=== PATIENT | female | born 1940 | race Hispanic/Latino ===

== ENCOUNTER 2017-10-29 17:20 | Inpatient (IN) | payer OTHER ==
--- OUTSIDE RECORDS SUMMARY | 2017-10-29 17:24 | XMS REPORT | Clinical Summary ---
:1940 Author Organization [facility] Address [address] [place] [address] Care Team Providers Name Role Phone Asked, No Pcp Primary Care Provider Unavailable Allergies Active Allergy Reactions Severity Noted Date Comments Hydrocodone Shortness Of Breath High 07/05/2017 Penicillins Other (See Comments) Medium 07/05/2017 Unknown Reaction Tramadol Shortness Of Breath High 07/05/2017 Current Medications Prescription Sig. Disp. Refills Start Date End Date Status furosemide Take 40 mg by 05/24/2017 Active (LASIX) 40 mg mouth daily. tablet gabapentin Take 300 mg by 06/14/2017 Active (NEURONTIN) 300 mouth 3 (three) mg capsule times a day. VICTOZA 3-LE 0.6 Inject 1.2 mg 05/04/2017 Active mg/0.1 mL (18 under the skin mg/3 mL) pen daily with injector breakfast. losartan (COZAAR) Take 50 mg by 05/24/2017 Active 50 MG tablet mouth daily. metFORMIN Take 500 mg by 05/24/2017 Active (GLUCOPHAGE) 500 mouth 2 (two) mg tablet times a day with meals. oxybutynin Take 5 mg by 05/24/2017 Active (DITROPAN) 5 MG mouth daily. tablet pravastatin Take 20 mg by 04/11/2017 Active (PRAVACHOL) 20 MG mouth daily. tablet raloxifene Take 60 mg by 04/11/2017 Active (EVISTA) 60 mg mouth daily. tablet fluticasone 06/05/2017 Discontinued (FLONASE) 50 7 mcg/actuation nasal spray BREO ELLIPTA Inhale 1 07/01/2017 Discontinued 200-25 mcg/dose inhalations once 7 blister with daily. device powder for inhalation levoFLOXacin 07/05/2017 Discontinued (LEVAQUIN) 250 MG 7 tablet metoprolol 07/05/2017 Discontinued succinate XL 7 (TOPROL-XL) 25 mg 24 hr tablet omeprazole Take 20 mg by 05/24/2017 Discontinued (PriLOSEC) 20 MG mouth daily. 7 capsule potassium Take 10 mEq by 06/17/2017 Discontinued chloride mouth daily. 7 (K-DUR,KLOR-CON) 10 MEQ CR tablet predniSONE Take 10 mg by 06/14/2017 Discontinued (DELTASONE) 10 mg mouth daily. [address] 1 capsule 06/15/2017 Discontinued HANDIHALER 18 mcg into inhaler and 7 per inhalation inhale once capsule daily. valsartan 05/24/2017 Discontinued (DIOVAN) 80 MG [address] 1 puff (1 30 capsule 0 07/09/2017 HANDIHALER 18 mcg capsule total) 8 per inhalation into inhaler and capsule inhale once daily for 30 days. arformoterol Take 2 mL (15 mcg 120 mL 0 07/09/2017 (BROVANA) 15 total) by 8 mcg/2 mL solution nebulization 2 for nebulization (two) times a day for 30 days. ipratropium-albut Take 3 mL by 360 mL 0 07/09/2017 levi (DUO-NEB) nebulization 8 0.5-2.5 mg/mL every 4 (four) nebulizer hours as needed for wheezing or shortness of breath for up to 30 days. predniSONE Take 2 tablets 6 tablet 0 07/10/2017 (DELTASONE) 20 mg (40 mg total) by 7 tablet mouth daily for 3 days. omeprazole Take 2 capsules 60 capsule 0 07/09/2017 (PriLOSEC) 20 MG (40 mg total) by 8 capsule mouth daily for 30 days. Active Problems Problem Noted Date COPD exacerbation 07/07/2017 Other chest pain 07/05/2017 Encounters Date Type Specialty Care Team Description 07/20/2017 Lab Lab Colomer, Ac, Dyspnea, unspecified type (Primary Dx) ; Acute respiratory insufficiency 07/05/2017 - Hospital Encounter Cardiology Pavel Coleman Other chest pain (Primary Dx); 07/09/2017 MD Yamil Shortness of breath Valarie Bacon MD Lock, Zeinab Herrera MD after 10/28/2016 Social History Tobacco Use Types Packs/Day Years Used Date Never Smoker Smokeless Tobacco: Never Used Alcohol Use Drinks/Week oz/Week Comments No Sex Assigned at Date Recorded Not on file Last Filed Vital Signs Vital Sign Reading Time Taken Blood Pressure 97/65 07/09/2017 1:30 PM HEADWAITER/HEADWAITRESS Pulse 68 07/09/2017 1:30 PM HEADWAITER/HEADWAITRESS Temperature 36.6 C (97.9 F) 07/09/2017 1:30 PM HEADWAITER/HEADWAITRESS Respiratory Rate 20 07/09/2017 1:30 PM HEADWAITER/HEADWAITRESS Oxygen Saturation 95% 07/09/2017 1:30 PM HEADWAITER/HEADWAITRESS Inhaled Oxygen Concentration - - Weight 73.5 kg (162 lb) 07/09/2017 5:00 AM HEADWAITER/HEADWAITRESS Height 149.9 cm (4' 11") 07/06/2017 12:33 AM HEADWAITER/HEADWAITRESS Body Mass Index 32.72 07/09/2017 5:00 AM HEADWAITER/HEADWAITRESS Plan of Treatment Health Maintenance Due Date Last Done Comments COLONOSCOPY 1992 MAMMOGRAM 1992 ZOSTER VACCINE 2002 PNEUMOCOCCAL POLYSACCHARIDE VACCINE AGE 65 AND OVER 2007 PNEUMOCOCCAL-13 2007 INFLUENZA VACCINE 02/28/2018 Procedures Procedure Name Priority Date/Time Associated Comments Diagnosis ECHOCARDIOGRAM 2D Routine 07/06/2017 11:00 Results for this COMPLETE W MMODE AM HEADWAITER/HEADWAITRESS procedure are in SPECTRAL COLOR DOPPLER the results (03339) section. CV STRESS TEST NUCLEAR Routine 07/06/2017 8:53 Results for this CARDIO AM HEADWAITER/HEADWAITRESS procedure are in the results section. after 10/28/2016 Results Estimated GFR (07/20/2017 12:25 PM)Only the most recent of7 resultswithin the time period is included. Component Value Ref Range GFR Non Af Amer >90 mL/min/1.73 m2 GFR Af Amer >90 mL/min/1.73 m2 Comment: Chronic kidney disease: <60 mL/min/1.73m2 Kidney failure: <15 mL/min/1.73m2 The estimated GFR is calculated from the IDMS-traceable Modification of Diet in Renal Disease Equation. The accuracy of the calculation is poor when the creatinine is normal. Calculated values >90 mL/min/1.73m2 are not reported. This equation has not been validated in children (<18 years), women, the elderly (>70 years), or ethnic groups other than Caucasians and Americans. Specimen Performing Laboratory Plasma specimen [facility] DEPARTMENT OF PATHOLOGY AND [facility] [address] [place] [address] CBC with platelet and differential (07/20/2017 12:25 PM)Only the most recent of6 resultswithin the time period is included. Component Value Ref Range WBC 11.72 (H) 4.50 - 11.00 k/uL RBC 4.18 (L) 4.20 - 5.50 m/uL HGB 13.5 12.0 - 16.0 g/dL HCT 42.8 37.0 - 47.0 % MCV 102.4 (H) 82.0 - 100.0 fL MCH 32.3 27.0 - 34.0 pg MCHC 31.5 31.0 - 37.0 g/dL RDW - SD 51.8 37.0 - 55.0 fL MPV 9.8 8.8 - 13.2 fL Platelet count 269 150 - 400 k/uL Nucleated RBC 0.00 /100 WBC Neutrophils 72.5 (H) 39.0 - 69.0 % Lymphocytes 15.8 (L) 25.0 - 45.0 % Monocytes 6.7 0.0 - 10.0 % Eosinophils 3.7 0.0 - 5.0 % Basophils 0.4 0.0 - 1.0 % Immature granulocytes 0.9Comment: "Immature granulocytes" 0.0 - 1.0 % (promyelocytes, myelocytes, metamyelocytes) Specimen Performing Laboratory Blood [facility] DEPARTMENT OF PATHOLOGY AND [facility] [address] [place] [address] B natriuretic peptide (07/20/2017 12:25 PM)Only the most recent of2 resultswithin the time period is included. Component Value Ref Range BNP 129 (H) 0 - 100 pg/mL Specimen Performing Laboratory Blood [facility] DEPARTMENT OF PATHOLOGY AND GENOMIC MEDICINE [address] [place] [address] Basic metabolic panel (07/20/2017 12:25 PM)Only the most recent of6 resultswithin the time period is included. Component Value Ref Range Sodium 140 135 - 148 mEq/L Potassium 4.9 3.5 - 5.0 mEq/L Chloride 98 98 - 112 mEq/L CO2 28 24 - 31 mEq/L Anion gap 14 7 - 15 mEq/L Comment: Starting from October , anion gap calculation no longer incorporates potassium. Please note the change. BUN 9 8 - 23 mg/dL Creatinine 0.6 0.5 - 0.9 mg/dL Glucose 175 (H) 65 - 99 mg/dL Calcium 10.9 (H) 8.8 - 10.2 mg/dL Specimen Performing Laboratory Plasma specimen [facility] DEPARTMENT OF PATHOLOGY AND GENOMIC MEDICINE [address] [place] [address] POC glucose (07/09/2017 1:08 PM)Only the most recent of14 resultswithin the time period is included. Component Value Ref Range POC glucose 296 (H) 65 - 99 mg/dL Comment: [facility] Notified RN Meter ID: [id number] [employer] Instructor: Andrew Lyman Specimen Performing Laboratory [facility] DEPARTMENT OF PATHOLOGY AND GENOMIC MEDICINE [address] [place] [address] FL Esophagram Complete (07/07/2017 4:23 PM) Specimen Performing Laboratory [facility] [address] [place] [address] Narrative EXAMINATION:FL ESOPHAGRAM COMPLETE CLINICAL HISTORY:GERD COMPARISON:None. Fluoroscopy time: 1.7 minutesSpot Images: 26 Dose: 114.08 mGy FINDINGS: The patient swallowed air producing granules and barium without difficulty. Multiple tertiary contractions were visualized and there was mild delayed emptying. There was no evidence of stricture, focal mucosal abnormality, or gastroesophageal reflux. IMPRESSION: Tertiary contractions consistent with presbyesophagus. Delayed esophageal emptying. No evidence of gastroesophageal reflux. [facility]-[id number] Procedure Note [facility], Radiology Results Incoming - 07/07/2017 5:56 PM HEADWAITER/HEADWAITRESS EXAMINATION: FL ESOPHAGRAM COMPLETE CLINICAL HISTORY: GERD COMPARISON: None. Fluoroscopy time: 1.7 minutes Spot Images: 26 Dose: 114.08 mGy FINDINGS: The patient swallowed air producing granules and barium without difficulty. Multiple tertiary contractions were visualized and there was mild delayed emptying. There was no evidence of stricture, focal mucosal abnormality, or gastroesophageal reflux. IMPRESSION: Tertiary contractions consistent with presbyesophagus. Delayed esophageal emptying. No evidence of gastroesophageal reflux. [facility]-[id number] SS-B antibody (07/06/2017 4:50 PM) Component Value Ref Range Sjogren's SS-B antibody <0.2 0.0 - 0.9 AI Comment: SS-B is less sensitive than SS-A for Sjogren's syndrome, but is more specific and is useful in distinguishing SLE from Sjogren's. SS-A should beordered separately if clinically warranted. Specimen Performing Laboratory Serum [facility] DEPARTMENT OF PATHOLOGY AND [facility] [address] [place] [address] SS-A antibody (07/06/2017 4:50 PM) Component Value Ref Range Sjogren's SS-A antibody <0.2 0.0 - 0.9 AI Comment: SS-A is sensitive for Sjogren's syndrome, but may also be positive with SLE(up to 30% of SLE patients are positive for SS-A). SS-B is less sensitive, but is useful in distinguishing SLE from Sjogren's, and should be ordered if clinically warranted Specimen Performing Laboratory Serum [facility] [address] [address] Hypersensitivity pneumonitis I (07/06/2017 4:50 PM) Component Value Ref Range Aspergillus fumigatus #1 None Detected None-Detected Aspergillus fumigatus #6 None Detected None-Detected Aureobasidium pullulans None Detected None-Detected Comment: Testing includes antibodies directed at Aureobasidium pullulans, Aspergillus fumigatus #1, Aspergillus fumigatus #6, Micropolyspora faeni and Thermoactinomyces vulgaris #1. [place] serum None Detected None-Detected Micropolyspora faeni None Detected None-Detected Thermoactinomyces vulgaris #1 None Detected None-Detected Comment: Performed by [employer], [address] [place] [address] [id number] [email or web address], Zane Saavedra MD - Lab. Director Specimen Performing Laboratory Serum [facility] [address] [address] Anti-neutrophilic cytoplasmic Abs panel (07/06/2017 4:50 PM) Component Value Ref Range ANCA screen Negative Negative Specimen Performing Laboratory Blood [facility] AND [address] [address] Rheumatoid factor (07/06/2017 4:50 PM) Component Value Ref Range Rheumatoid factor 18 (H) 0 - 13 IU/mL Specimen Performing Laboratory Plasma specimen [facility] [address] [address] C-reactive protein (07/06/2017 4:50 PM) Component Value Ref Range CRP <0.30 0.00 - 0.50 mg/dL Specimen Performing Laboratory Plasma specimen [facility] DEPARTMENT PATHOLOGY [address] [address] JOHNATHON (07/06/2017 4:50 PM) Component Value Ref Range JOHNATHON screen Not Detected <1:80 Specimen Performing Laboratory Blood [facility] [address] [address] Folate level (07/06/2017 1:23 PM) Component Value Ref Range Folate >20.0 4.8 - 24.2 ng/mL Specimen Performing Laboratory Serum [facility] [place] [address] Vitamin B12 level (07/06/2017 1:23 PM) Component Value Ref Range Vitamin B12 1,256 (H) 211 - 946 pg/mL Comment: Significant overlap exists between normal and deficiency states. However, most patients with deficiencies will have Serum B12 <200 pg/mL. Specimen Performing Laboratory Serum [facility] [address] Echocardiogram complete w contrast and 3D if needed (07/06/2017 11:00 AM) Specimen Performing Laboratory [facility] [address] [place] [address] Narrative Echocardiography Report [address] [place] [address] Pat.Name:PETER DIEGO Pat.ID:[id number] .Date: 07/06/2017 Refer.MD:KRISTIE ALMENDAREZ MD Exam Time: 10:04:00 AM Study Type:Routine Echo Height:59inWeight:169lb BSA: 1.72 m2 DOBAge:1940,76Y Sex: FEMALEBP:94/54 HR:78 bpmSonogrphr: TEMITOPE Manzanares Pat. Stat.:Inpatient Room:[facility] Study Status:Final Echo Event ID:[id number] Order ID:[id number] Reason for Study:Heart Failure; HF - Initial eval of known or suspected HF (systolic or diastolic) based on symptoms, signs, or abnormal test results Procedures:2D Echo, Colorflow Doppler, 3D Echo, Strain, Intravenous Definity Contrast Race:C SUMMARY: LV EF is normal. RV systolic function is mild to moderately depressed. LV filling pressure is borderline elevated. Estimated PA systolic pressure is 60 mmHg, assuming a mean RAP of 5 mmHg. FINDINGS: LV: LV size is normal. There is mild concentric LV hypertrophy. LVEF is normal. Estimated EF is 60-64%. Overall wall motionis normal. RV: RV size is moderately enlarged. RV systolic function is mild tomoderately depressed. RV wall motion is hypokinetic. LA: LA size is normal. RA: RA size is normal. AO: Aortic root diameter is normal. TANVIR: No pericardial effusion. AV: No structural AV abnormalities noted. MV: Moderate mitral annular calcification. PV: No structural PV abnormalities noted. A trace of pulmonic regurgitation. TV: No structural TV abnormalities noted. Mild tricuspid regurgitation Hooks: LV relaxation is impaired. LV filling pressure is borderline elevated. Other:Estimated PA systolic pressure is 60 mmHg, assuming a mean RAPof 5 mmHg. MEASUREMENTS: 2D Parasternal [place] Ao An1.8 cmLVPWd1.1 cm LVOT 1.8 cmLA Ds4.1 cm LVIDd5.1 cmIndex 3 cm/m Ao Rtd 3.2 cm Index1.9 cm/m LVIDs2.6 cmLV Cqio456.6 g(87-129) LV%fs 48.8 % LVM Index 125.3 g/m2 IVSd 1.1 cmRWT0.5 LA Sng Plane LA Area 20 cm2(8.8-23.4) LA Vol 55.2 ml Index32.1 ml/m LA LngAx 6.4 cm RA Sng Plane RA Area 23.5 cm2(8.3-19.5) RA Vol77.2 ml Index44.9 ml/m RA LngAx 5.8 cm DOPPLER LVOT Stroke Vol LVOT 1.8 cmLVOT CO3.7 l/min LVOT TVI21.3 cmLVOT CI2.1 l/m/m2 LVOT Tm291 pamyLR83 bpm LVOT SV 54.3 ml Signed 07/06/2017 02:19 PM Najma Ambrosio M.D. Procedure Note Interface, Radiology Results In - 07/06/2017 2:20 PM [facility] Echocardiography Report [address] [place] [address] Pat.Name: PETER DIEGO Pat.ID: [id number] .Date: 07/06/2017 Refer.MD: KRISTIE ALMENDAREZ MD Exam Time: 10:04:00 AM Study Type:Routine Echo Height: 59in Weight: 169lb BSA: 1.72 m2 Age: 14 1940,76Y Sex: FEMALE BP: 94/54 HR: 78 bpm Sonogrphr: TEMITOPE Manzanares Pat. Stat.:Inpatient Room: [facility] Study Status:Final Echo Event ID:[id number] Order ID: [id number] Reason for Study:Heart Failure; HF - Initial eval of known or suspected HF (systolic or diastolic) based on symptoms, signs, or abnormal test results Procedures:2D Echo, Colorflow Doppler, 3D Echo, Strain, Intravenous Definity Contrast Race: C SUMMARY: LV EF is normal. RV systolic function is mild to moderately depressed. LV filling pressure is borderline elevated. Estimated PA systolic pressure is 60 mmHg, assuming a mean RAP of 5 mmHg. FINDINGS: LV: LV size is normal. There is mild concentric LV hypertrophy. LV EF is normal. Estimated EF is 60-64%. Overall wall motion is normal. RV: RV size is moderately enlarged. RV systolic function is mild to moderately depressed. RV wall motion is hypokinetic. LA: LA size is normal. RA: RA size is normal. AO: Aortic root diameter is normal. TANVIR: No pericardial effusion. AV: No structural AV abnormalities noted. MV: Moderate mitral annular calcification. PV: No structural PV abnormalities noted. A trace of pulmonic regurgitation. TV: No structural TV abnormalities noted. Mild tricuspid regurgitation Hooks: LV relaxation is impaired. LV filling pressure is borderline elevated. Other: Estimated PA systolic pressure is 60 mmHg, assuming a mean RAP of 5 mmHg. MEASUREMENTS: 2D Parasternal [place] Ao An 1.8 cm LVPWd 1.1 cm LVOT 1.8 cm LA Ds 4.1 cm LVIDd 5.1 cm Index 3 cm/m Ao Rtd 3.2 cm Index 1.9 cm/m LVIDs 2.6 cm LV Mass 215.6 g (87-129) LV%fs 48.8 % LVM Index 125.3 g/m2 IVSd 1.1 cm RWT 0.5 LA Sng Plane LA Area 20 cm2 (8.8-23.4) LA Vol 55.2 ml Index 32.1 ml/m LA LngAx 6.4 cm RA Sng Plane RA Area 23.5 cm2 (8.3-19.5) RA Vol 77.2 ml Index 44.9 ml/m RA LngAx 5.8 cm DOPPLER LVOT Stroke Vol LVOT 1.8 cm LVOT CO 3.7 l/min LVOT TVI 21.3 cm LVOT CI 2.1 l/m/m2 LVOT Tm 291 msec HR 68 bpm LVOT SV 54.3 ml Signed 07/06/2017 02:19 PM Najma Ambrosio M.D. CV stress test (07/06/2017 8:53 AM) Component Value Ref Range Resting HR 60 Resting BP 106 Peak MET Achieved 1.0 Protocol Name REGADENO Time in Exercise Phase 00:01:00 Max Systolic BP 106 Max Diastolic BP 74 Max Heart Rate 95 Max Predicted Heart Rate 146 Target HR Formula (220 - Age)*100% Test Indication chest pain Arrhy During Ex ECG Interp Before EX ECG Interp During Ex Ex Summary Comment Overall HR Response to Exercise Overall BP Response To Exercise Reason for Termination Stress Test Impression -Waveform interpreted in report associated with image study. No interpretation is provided as part of this Stress ECG report.-Electronically Signed By Alcides OLIVARES, Diandra Pereyra ([id number]), film editor Fahad Sharp ([id number]) on 07/06/2017 11:21:19 AM Specimen Performing Laboratory [facility] MUSE [address] [place] [address] CV myocardial perfusion (07/06/2017 8:53 AM) Specimen Performing Laboratory [facility] [address] [place] [address] Narrative Nuclear Cardiology and Cardiac CT [address] [place] [address] Myocardial Perfusion Imaging Report Stress ECG tracings are available in MUSE, EPIC and CV Web All ECG interpretations are included in this report Pat.Name:PETER DIEGO Pat.ID:[id number] St.Date: 07/06/2017 Refer.MD:ZEINAB CARABALLO MD Exam Time: 8:33:00 AM Study Type:Myocardial Perfusion Imaging Height:59inWeight:169lb BSA: 1.72 m2 DOBAge:1940,76Y Sex: FEMALEBP:106/74 HR:60 bpmHCT: 39.7 % Nuclear Tech:GIFTY Rios, ARRT/ GIFTY Suarez Pat. Stat.:Outpatient Room:[id number] Event ID:[id number] Order ID:[id number] Reason for Study:Chest pain, unspecified* History / Clinical:Congestive heart failure, COPD, Diabetes, Hyperlipidemia, Hypertension, Diabetic Neuropathy, GERD, Hernia Repair Procedures:Stress only Race:C Risk Factors:Diabetes, Hyperlipidemia, Hypertension Clinical Symptoms:Regadenoson Physical Exam:S1, S2 Surgery: Serum K+ Date,4.807/06/2017, Troponin I Date, 1)negative/07/05/2017 2)negative/07/06/2017, BUN/Creatinine Date, 17/0.707/06/2017 Medications:Cozaar, Lasix, Breo-Ellipta, Neurontin, K-Dur, Pravastatin, Victoza, Spiriva SUMMARY: SCINTIGRAPHIC RESULTS Perfusion Defect Size (% LV) 0 % Total 0 % Ischemia 0 % Scar Left Ventricular Perfusion Results There is normal tracer distribution throughout the myocardium during stress. Gated SPECT Results The post-stress left ventricular ejection fraction is 61 % with normal regional wall motion and left ventricular thickening.Left ventricular end-diastolic volume is 54 ml; end-systolic volume is21 ml. The left ventricle is of normal size at stress.The right ventricle is moderate to severely enlarged with normal wall motion. Conclusion Normal regadenoson Tc-99m tetrofosmin myocardial perfusion study. The left ventricular ejection fraction is normal. RV dilatation is present and RVH. Comments Patients with a normal stress myocardial perfusion study have a low (< 1%) annual risk of cardiac or nonfatal myocardial infarction. Study Quality/Artifacts The study quality is good. Comparison to Previous Study None available. STRESS: Baseline Vital Signs:Intervention: Regadenoson 0.4mg/5ml IV over 10 seconds followed by radiotracer injection and 5ml saline flush ECG: Normal Sinus Rhythm HR:60 BP:106/74 Stress Test Results: Target HR: 124 Symptoms and Complications: Arrhythmias: None Terminated: As per Regadenoson protocol Symptoms:Neck/jaw pain Complications: None Conclusions: Normal heart rate response to pharmacological stress, Normal blood pressure response to pharmacological stress Stress ECG Interp: No ischemic ST segment change occurred with stress. Signed 07/06/2017 02:10 PM Diandra Mcgrath MD Procedure Note Interface, Radiology Results In - 07/06/2017 2:11 PM HEADWAITER/HEADWAITRESS Nuclear Cardiology and Cardiac CT [address] [place] [address] Myocardial Perfusion Imaging Report Stress ECG tracings are available in [employer], [employer] and [employer] All ECG interpretations are included in this report Pat.Name: PETER DIEGO Pat.ID: [id number] St.Date: 07/06/2017 Refer.MD: ZEINAB CARABALLO MD Exam Time: 8:33:00 AM Study Type:Myocardial Perfusion Imaging Height: 59in Weight: 169lb BSA: 1.72 m2 Age: 14 1940,76Y Sex: FEMALE BP: 106/74 HR: 60 bpm HCT: 39.7 % Nuclear Tech:GIFTY Rios, ARRT/ GIFTY Suarez Pat. Stat.:Outpatient Room: J810 Nuclear Event ID:[id number] Order ID: [id number] Reason for Study:Chest pain, unspecified* History / Clinical:Congestive heart failure, COPD, Diabetes, Hyperlipidemia, Hypertension, Diabetic Neuropathy, GERD, Hernia Repair Procedures:Stress only Race: C Risk Factors:Diabetes, Hyperlipidemia, Hypertension Clinical Symptoms:Regadenoson Physical Exam:S1, S2 Surgery: Serum K+ Date, 4.8/07/06/2017, Troponin I Date, 1)negative/07/05/2017 2)negative/07/06/2017 , BUN/Creatinine Date, 17/0.7/07/06/2017 Medications:Cozaar, Lasix, Breo-Ellipta, Neurontin, K-Dur, Pravastatin, Victoza, Spiriva SUMMARY: SCINTIGRAPHIC RESULTS Perfusion Defect Size (% LV) 0 % Total 0 % Ischemia 0 % Scar Left Ventricular Perfusion Results There is normal tracer distribution throughout the myocardium during stress. Gated SPECT Results The post-stress left ventricular ejection fraction is 61 % with normal regional wall motion and left ventricular thickening. Left ventricular end-diastolic volume is 54 ml; end-systolic volume is 21 ml. The left ventricle is of normal size at stress. The right ventricle is moderate to severely enlarged with normal wall motion. Conclusion Normal regadenoson Tc-99m tetrofosmin myocardial perfusion study. The left ventricular ejection fraction is normal. RV dilatation is present and RVH. Comments Patients with a normal stress myocardial perfusion study have a low (< 1%) annual risk of cardiac or nonfatal myocardial infarction. Study Quality/Artifacts The study quality is good. Comparison to Previous Study None available. STRESS: Baseline Vital Signs: Intervention: Regadenoson 0.4mg/5ml IV over 10 seconds followed by radiotracer injection and 5ml saline flush ECG: Normal Sinus Rhythm HR: 60 BP: 106/74 Stress Test Results: Target HR: 124 Symptoms and Complications: Arrhythmias: None Terminated: As per Regadenoson protocol Symptoms: Neck/jaw pain Complications: None Conclusions: Normal heart rate response to pharmacological stress, Normal blood pressure response to pharmacological stress Stress ECG Interp: No ischemic ST segment change occurred with stress. Signed 07/06/2017 02:10 PM Diandra Mcgrath MD Urinalysis screen and microscopy, with reflex to culture (07/06/2017 5:40 AM) Component Value Ref Range Specimen site Catheterized Color, UA Yellow Appearance, UA Clear Specific gravity, UA >1.060 (H) 1.001 - 1.035 pH, UA 5.0 5.0 - 8.5 Protein, UA 1+ (A) Negative Glucose, UA Negative Negative Ketones, UA Negative Negative Bilirubin, UA Negative Negative Blood, UA Negative Negative Nitrite, UA Negative Negative Urobilinogen, UA <2.0 <2.0 Leukocyte esterase, UA Small (A) Negative Epithelial cells, UA 1 /HPF Round epithelial cells, UA <1 0 - 1 /HPF WBC, UA 1 0 - 4 /HPF RBC, UA 1 0 - 2 /HPF Bacteria, UA None seen None seen Yeast, UA None seen Yeast with pseudohyphae, UA None seen Calcium oxalate crystals, UA Few Specimen Performing Laboratory Urine [facility] DEPARTMENT OF PATHOLOGY AND GENOMIC MEDICINE [address] [place] [address] Gram stain (07/06/2017 5:40 AM) Component Value Ref Range Gram stain result No WBC's or organisms seen. Comment: Specimen Information Specimen Source: Urine Specimen Site: Catheterized Specimen Performing Laboratory Urine - Catheterized [facility] DEPARTMENT OF PATHOLOGY AND [facility]IC[facility] [address] [place] [id number] Urine culture (07/06/2017 5:40 AM) Component Value Ref Range Urine culture isolate Gram negative rods 10-1 cfu/ml (A) Comment: Specimen Information Specimen Source: Urine Specimen Site: Catheterized Urine culture isolate Mixed Gram positive uvaldo 10-3 cfu/ml (A) Specimen Performing Laboratory Urine - Catheterized [facility] DEPARTMENT OF PATHOLOGY AND [facility] [address] [place] [address]99 Troponin (07/06/2017 4:21 AM)Only the most recent of2 resultswithin the time period is included. Component Value Ref Range Troponin <0.30 0.00 - 0.30 ng/mL Comment: 0.30 - 1.49 ng/mlMay indicate increased risk of acute coronary syndrome. >=1.5 ng/mlConsistent with acute myocardial infarction. The diagnostic value of a single normal or non-diagnostic result is questionable.Serial samples at 2-6 hour intervals are required to rule out acute myocardial injury. Specimen Performing Laboratory Plasma specimen [facility] DEPARTMENT OF PATHOLOGY AND GENOMIC MEDICINE [address] [place] [address]859 Manual differential (07/06/2017 4:21 AM) Component Value Ref Range Manual differential PERFORMED Neutrophils 63.0 39.0 - 69.0 % Lymphocytes 30.0 25.0 - 45.0 % Monocytes 2.0 0.0 - 10.0 % Eosinophils 5.0 0.0 - 5.0 % Basophils 0.0 0.0 - 1.0 % Metamyelocytes 0 % Promyelocytes 0 % Reactive lymphocytes Few Platelet slide review Karla adequate Anisocytosis Moderate Polychromasia Moderate Ovalocytes Moderate Enlarged platelets Moderate (A) Specimen Performing Laboratory [facility] DEPARTMENT OF PATHOLOGY AND GENOMIC MEDICINE [address] [place] [address] Thyroid stimulating hormone (07/06/2017 4:21 AM) Component Value Ref Range TSH 3.85 0.27 - 4.20 uIU/mL Specimen Performing Laboratory Plasma specimen [facility] DEPARTMENT OF PATHOLOGY AND GENOMIC MEDICINE [address] [place] [address]31 Magnesium level (07/06/2017 4:21 AM) Component Value Ref Range Magnesium 1.8 1.6 - 2.4 mg/dL Specimen Performing Laboratory Plasma specimen [facility] DEPARTMENT OF PATHOLOGY AND GENOMIC [address] [address] Hemoglobin A1c (07/06/2017 4:21 AM) Component Value Ref Range Hemoglobin A1C 8.3 (H) 4.0 - 5.6 % Comment: HbA1c cutoffs for diagnosing diabetes: 4.0% - 5.6%=normal 5.7% - 6.4%=increased risk for diabetes (prediabetes) >=6.5%=diabetes Goals for glycemic control (ADA 2016) < 7.0%Target for non adults with diabetes. More or less stringent targets may be appropriate for individual patients. <7.5% Target for Children and adolescents with type 1 diabetes. Specimen Performing Laboratory Blood [facility] DEPARTMENT OF PATHOLOGY AND [facility] [address] [place] [address]874 Lipid panel (07/06/2017 4:21 AM) Component Value Ref Range Cholesterol 93 <200 mg/dL Triglycerides 120 <150 mg/dL HDL cholesterol 34 (L) >40 mg/dL LDL cholesterol 40Comment: Result obtained by direct LDL <100 mg/dL measurement Lipid panel interpretation SeeBelow Comment: Total Cholesterol (mg/dL) <200 Desirable [id number] >=240High Triglycerides (mg/dL) <150 Normal [id number] 200-499High >=500Very high HDL Cholesterol (mg/dL) <40Low (male) <40Low (female) LDL Cholesterol (mg/dL) <100 Optimal 100-129Near or above optimal [phone] 160-189High >=190Very high Risk Catergories that modify LDL goals. Risk CatergoriesLDL goal (mg/dL) CHD and CHD risk equivalent<100 (10-year risk >20%) Multiple (2+) risk factors <130 (10-year risk=<20%) 0-1 risk factors <160 (<10-year risk) Defining levels of lipids in metabolic syndrome Triglycerides>=150 mg/dL HDL Cholesterol Men<40 mg/dL Women<40 mg/dL Non-HDL cholesterol is a second target for therapy in persons with high triglycerides (>=200 mg/dL) Specimen Performing Laboratory Plasma specimen [facility] DEPARTMENT OF PATHOLOGY AND [address] [address] Respiratory pathogen panel (07/06/2017 4:18 AM) Component Value Ref Range Respiratory pathogen panel Negative for all pathogens tested: Negative for Adenovirus Negative for Coronavirus HKU1 Negative for Coronavirus NL63 Negative for Coronavirus 229E Negative for Coronavirus OC43 Negative for Human Metapneumovirus Negative for Rhinovirus/Enterovirus Negative for Influenza A Negative for Influenza A/H1 Negative for Influenza A/H3 Negative for Influenza A/H1-2009 Negative for Influenza B Negative for Parainfluenza Virus 1 Negative for Parainfluenza Virus 2 Negative for Parainfluenza Virus 3 Negative for Parainfluenza Virus 4 Negative for Respiratory Syncytial Virus Negative for Bordetella pertussis Negative for Chlamydophila pneumoniae Negative for Mycoplasma pneumoniae This real-time PCR assay detects the presence of nucleic acids (RNA or DNA) for the respiratory pathogens listed. A result of "Not-detected" does not exclude the possibility of the presence of one or more pathogens at concentrations less than the detectable limits of the assay. Comment: Specimen Information Specimen Source: Nares Specimen Site: Left Specimen Performing Laboratory Nares - Left [facility] DEPARTMENT OF PATHOLOGY AND GENOMIC MEDICINE [address] [place] [address] ECG 12 lead (07/06/2017 4:00 AM)Only the most recent of2 resultswithin the time period is included. Component Value Ref Range Ventricular rate 62 Atrial rate 62 VT interval 158 QRSD interval 78 QT interval 346 QTC interval 351 P axis 1 25 QRS axis 1 145 T wave axis -21 EKG impression Normal sinus rhythm-Right axis deviation-Anterior infarct , age undetermined-ST & T wave abnormality, consider lateral ischemia- Abnormal ECG-In automated comparison with ECG of 05-JUL-2017 16:07,-Si gnificant changes have occurred- Specimen Performing Laboratory [facility] MUSE [address] [place] [address] CT Angiogram Pe Chest (07/05/2017 7:23 PM) Specimen Performing Laboratory [facility] [address] [place] [address] ANGIOGRAM PE CHEST CLINICAL INDICATION: chest pain COMPARISON:Chest radiograph 07/05/2017. TECHNIQUE:CT angiographic images of the chest were obtained during intravenous administration of iodinated contrast.Computerized, reformatted images and 3 -D MIP images were obtained and archived (per CT pulmonary embolism protocol). CT scans are performed using radiation dose reduction techniques (iterative reconstruction and/or automated exposure control). Technical factors are evaluated and adjusted to ensure appropriate moderation of exposure. Automated dose management technology is applied to adjust radiation exposure while achieving a diagnostic quality image. FINDINGS: Pulmonary arteries: Diagnostic quality of study is adequate for the evaluation of pulmonary embolism. There is no evidence of acute or chronic pulmonary embolism. No evidence of right heart strain. The main pulmonary artery measures 39 mm in luminal diameter. Reflux of contrast into the IVC and hepatic veins. Aorta:Mild calcific atherosclerosis of the thoracic aorta. Grossly no aortic aneurysm. Aorta is otherwise poorly contrast opacified. Lungs and large airways: Low lung volumes. Expiratory prior scan. There is reticulation and mild basilar predominant fibrosis with associated traction bronchiectasis. Pleura: Trace bilateral pleural effusions. Heart and pericardium:Heart size is enlarged. No pericardial effusion. Mediastinum and cecilia:No mass or hematoma. Lymph nodes: Borderline prominent mediastinal lymph nodes are noted, such as a right lower paratracheal lymph node measuring 1.0 cm short axis, nonspecific. Chest wall:Unremarkable. Bones:Diffuse osteopenia. Moderate-severe degenerative changes. Upper abdomen: Minimal contour irregularity of the liver suggesting chronic liver disease. IMPRESSION: 1. Negative CTA examination for pulmonary embolism. 2. 2. Low lung volumes with interstitial lung disease characterized by reticulation and basilar predominant fibrosis.Focal airspace consolidation is not seen. Superimposed areas of pneumonitis not excluded. 3. Prominent central pulmonary arteries suggesting pulmonary arterial hypertension. 4. Cardiomegaly. Reflux of contrast into the IVC and hepatic veins, suggesting elevated right heart pressures. [facility]-[id number] Procedure Note Hm Interface, Radiology Results Incoming - 07/05/2017 7:40 PM HEADWAITER/HEADWAITRESS CT ANGIOGRAM PE CHEST CLINICAL INDICATION: chest pain COMPARISON: Chest radiograph 07/05/2017. TECHNIQUE: CT angiographic images of the chest were obtained during intravenous administration of iodinated contrast. Computerized, reformatted images and 3-D MIP images were obtained and archived (per CT pulmonary embolism protocol). CT scans are performed using radiation dose reduction techniques (iterative reconstruction and/or automated exposure control). Technical factors are evaluated and adjusted to ensure appropriate moderation of exposure. Automated dose management technology is applied to adjust radiation exposure while achieving a diagnostic quality image. FINDINGS: Pulmonary arteries: Diagnostic quality of study is adequate for the evaluation of pulmonary embolism. There is no evidence of acute or chronic pulmonary embolism. No evidence of right heart strain. The main pulmonary artery measures 39 mm in luminal diameter. Reflux of contrast into the IVC and hepatic veins. Aorta: Mild calcific atherosclerosis of the thoracic aorta. Grossly no aortic aneurysm. Aorta is otherwise poorly contrast opacified. Lungs and large airways: Low lung volumes. Expiratory prior scan. There is reticulation and mild basilar predominant fibrosis with associated traction bronchiectasis. Pleura: Trace bilateral pleural effusions. Heart and pericardium: Heart size is enlarged. No pericardial effusion. Mediastinum and cecilia: No mass or hematoma. Lymph nodes: Borderline prominent mediastinal lymph nodes are noted, such as a right lower paratracheal lymph node measuring 1.0 cm short axis, nonspecific. Chest wall: Unremarkable. Bones: Diffuse osteopenia. Moderate-severe degenerative changes. Upper abdomen: Minimal contour irregularity of the liver suggesting chronic liver disease. IMPRESSION: 1. Negative CTA examination for pulmonary embolism. 2. 2. Low lung volumes with interstitial lung disease characterized by reticulation and basilar predominant fibrosis. Focal airspace consolidation is not seen. Superimposed areas of pneumonitis not excluded. 3. Prominent central pulmonary arteries suggesting pulmonary arterial hypertension. 4. Cardiomegaly. Reflux of contrast into the IVC and hepatic veins, suggesting elevated right heart pressures. [facility]-[id number] XR Chest 1 Vw Portable (07/05/2017 4:51 PM) Specimen Performing Laboratory [facility] [address] [place] [address] Narrative EXAMINATION:XR CHEST 1 VW PORTABLE CLINICAL HISTORY:Chest Pain COMPARISON:None. IMPRESSION: The heart is enlarged Patchy infiltrates in lungs bilaterally could be secondary to mild pulmonary vascular congestion or a infectious/plantar process Degenerative changes are present throughout the bony structures without evidence of a suspicious focal lesion. Diffuse calcified atherosclerotic vascular disease throughout the arterial structures. Small bilateral pleural effusions [id number] Procedure Note Interface, Radiology Results Incoming - 07/05/2017 5:00 PM HEADWAITER/HEADWAITRESS EXAMINATION: XR CHEST 1 VW PORTABLE CLINICAL HISTORY: Chest Pain COMPARISON: None. IMPRESSION: The heart is enlarged Patchy infiltrates in lungs bilaterally could be secondary to mild pulmonary vascular congestion or a infectious/plantar process Degenerative changes are present throughout the bony structures without evidence of a suspicious focal lesion. Diffuse calcified atherosclerotic vascular disease throughout the arterial structures. Small bilateral pleural effusions [id number] Prothrombin time with INR (07/05/2017 4:44 PM) Component Value Ref Range Prothrombin time 19.6 (H) 12.0 - 15.0 sec INR 1.6 Comment: The International Normalized Ratio (INR) is a therapeutic monitoring tool for patients who are stable on oral anticoagulant therapy. An INR of 2.0-3.0 is suggested for deep vein thrombosis/pulmonary embolism. Specimen Performing Laboratory Blood [facility] DEPARTMENT OF PATHOLOGY AND GENOMIC MEDICINE [address] [place] [address] Creatine kinase, total (CPK) (07/05/2017 4:44 PM) Component Value Ref Range Creatine kinase 23 (L) 26 - 192 U/L Specimen Performing Laboratory Plasma specimen [facility] DEPARTMENT OF PATHOLOGY AND GENOMIC MEDICINE [address] [place] [address] Comprehensive metabolic panel (07/05/2017 4:44 PM) Component Value Ref Range Sodium 138 135 - 148 mEq/L Potassium 5.6 (H) 3.5 - 5.0 mEq/L Chloride 101 98 - 112 mEq/L CO2 26 24 - 31 mEq/L Anion gap 11 7 - 15 mEq/L Comment: Starting from October , anion gap calculation no longer incorporates potassium. Please note the change. BUN 17 8 - 23 mg/dL Creatinine 0.8 0.5 - 0.9 mg/dL Glucose 233 (H) 65 - 99 mg/dL Calcium 10.0 8.8 - 10.2 mg/dL Protein 6.3 6.3 - 8.3 g/dL Comment: 4.6-7.0 g/dL 1 week 4.4-7.6 g/dL 7 months-1year5.1-7.3 g/dL 1-2 years5.6-7.5 g/dL >3 years6.0-8.0 g/dL 18-150 6.3-8.3 g/dL Albumin 2.8 (L) 3.5 - 5.0 g/dL A/G ratio 0.8 0.7 - 3.8 Alkaline phosphatase 75 35 - 104 U/L AST 29 10 - 35 U/L ALT 31 5 - 50 U/L Total bilirubin 0.4 0.0 - 1.2 mg/dL Specimen Performing Laboratory Plasma specimen [facility] DEPARTMENT OF PATHOLOGY AND GENOMIC MEDICINE [address] [place] [phone] after 10/28/2016 Insurance Payer Benefit Plan / Group Subscriber ID Type Phone Address [employer] MED[employer]ARE [employer] xxxxxxxxx O [phone] [facility] [address] [place] [address]
[2017-10-29 17:41] LABS: Arterial Blood Carboxyhemoglob 1.7 % (0-1.5); Blood O2 Saturation 92.2 % (92-98.5)
[2017-10-29 17:49] LABS: Absolute Lymphocytes (CBC) 1.3 K/uL (0.7-4.9); Absolute Monocytes 0.2 K/uL (0.1-1.3); Absolute Neutrophil 9.2 K/uL (1.8-8.0); Basophils % 1.2 % (0-1.3); Eosinophils % 0.6 % (0-4.4); Lymphocytes % 11.7 % (15.3-44.8); MCH 33.1 pg (27.0-35.0); MCV 103.3 fL (80-100); MPV 8.6 fL (7.6-11.3); RBC Red Blood Cell Count 4.16 M/uL (3.86-4.86)
[2017-10-29 17:53] LABS: Protime INR 0.97
[2017-10-29 17:58] LABS: Potassium 4.5 mEq/L (3.6-5.0)
[2017-10-29] MEDS ORDERED: FUROSEMIDE 100 MG/10 ML VIAL IV ONE (18:01)
[2017-10-29 18:04] LABS: Albumin 3.6 g/dL (3.2-5.5); Bilirubin Direct 0.2 mg/dL (0-0.2); Bilirubin Total 0.7 mg/dL (0.3-1.2); Protein, Total 7.1 g/dL (6.0-8.3)
[2017-10-29 18:09] LABS: Magnesium 1.5 mg/dL (1.8-2.5)
--- NOTE | 2017-10-29 18:22 | ER ---
Nurse's Notes [facility] Name: Peter Diego Age: 77 yrs Sex: Female : 1940 Arrival Date: 10/29/2017 Time: 17:22 Bed 2 Private MD: Diagnosis: Acute combined systolic (congestive) and diastolic (congestive) heart failure;Pulmonary fibrosis, unspecified;Acute respiratory failure with hypoxia Presentation: 10/29 17:23 Presenting complaint: Patient states: Pt observed tachypneic and cyanotic in triage, la1 brought to room 2, ERP at bedside, RA sats 70%. Transition of care: patient was not received from another setting of care. Onset of symptoms was October 29, 2017. Care prior to arrival: None. 17:23 Acuity: ALEJANDRA 1 la1 17:23 Method Of Arrival: Wheelchair la1 Triage Assessment: 17:55 General: Appears distressed, uncomfortable, obese, Behavior is cooperative, anxious, ae1 restless. Pain: Complains of pain in left clavicle and anterior aspect of left upper chest. EENT: No signs and/or symptoms were reported regarding the EENT system. Neuro: Level of Consciousness is awake, alert, obeys commands, Oriented to person, place, time, situation. Cardiovascular: Heart tones S1 S2 present Patient's skin is warm and dry. Rhythm is irregular. Respiratory: Reports shortness of breath air hunger labored breathing pain with movement Onset: The symptoms/episode began/occurred gradually, the patient has severe shortness of breath. Respiratory: Airway is patent Respiratory effort is labored, with nasal flaring, pursed lip, with retractions, shallow, Respiratory pattern is regular, tachypnea Breath sounds with crackles bilaterally. GI: Abdomen is round obese. : No signs and/or symptoms were reported regarding the genitourinary system. Derm: Skin is pale, grayish tint. Musculoskeletal: Patient appears weak. 17:59 Musculoskeletal: Swelling present in right foot, left foot, right leg and left leg. ae1 Historical: - Allergies: 17:42 Hydrocodone-Acetaminophen; iw 17:42 Tramadol HCl; iw 17:42 PENICILLINS; iw - Home Meds: 18:53 metformin 500 mg Oral tab 1 tab 2 times per day [Active]; Omeprazole Oral [Active]; ae1 Oxybutynin Chloride Oral [Active]; 18:57 Lasix 40 mg Oral tab 1 tab once daily [Active]; ae1 19:00 Neurontin 300 mg Oral cap 1 cap 3 times per day [Active]; ae1 - PMHx: 17:55 CHF; COPD; Diabetes - NIDDM; iw 18:57 Hyperlipidemia; ae1 - PSHx: 17:55 ; Hernia repair; Knee surgery; iw - Immunization history:: Pneumococcal vaccine is up to date, Flu vaccine is up to date. - Social history:: Smoking status: Patient/guardian denies using tobacco. Screenin:00 Abuse screen: Denies threats or abuse. Nutritional screening: No deficits noted. ae1 Tuberculosis screening: No symptoms or risk factors identified. Fall Risk Fall in past 12 months (25 points). No secondary diagnosis (0 pts). IV access (20 points). Ambulatory Aid- None/Bed Rest/Nurse Assist (0 pts). Gait- Weak (10 pts.). Mental Status- Oriented to own ability (0 pts). Assessment: 18:06 Reassessment: Patient appears less labored with Bipap applied. Patient states she is ae1 breathing easier. 18:32 Reassessment: assisted patient onto bedpan. Urine collected, patient tolerated well. ap3 19:30 General: Appears in no apparent distress. Behavior is calm, appropriate for age. Pain: lp1 Complains of pain in chest Aggravated by coughing. Neuro: Level of Consciousness is awake, alert, obeys commands, Oriented to person, place, time, situation. Cardiovascular: Patient's skin is warm and dry. Rhythm is sinus rhythm. Respiratory: Airway is patent Trachea midline Respiratory effort is labored, Respiratory pattern is symmetrical, BiPAP in place Breath sounds are clear bilaterally. GI: Abdomen is non-distended. : No signs and/or symptoms were reported regarding the genitourinary system. EENT: No signs and/or symptoms were reported regarding the EENT system. Derm: Skin is pink, warm \T\ dry. Musculoskeletal: Circulation, motion, and sensation intact. 20:04 Reassessment: Attempted to call report at this time, states nurse will call back. lp1 21:00 Reassessment: Patient appears in no apparent distress at this time. Neuro: Level of lp1 Consciousness is awake, alert, obeys commands. Respiratory: Respiratory effort is even. Derm: Skin is pink, warm \T\ dry. 21:00 Reassessment: Family at bedside, aware of admission. lp1 Vital Signs: 17:42 BP 137 / 82; Pulse 104; Resp 30; Pulse Ox 95% on 50% BiPAP; ae1 18:06 Temp 97.9(A); ae1 18:23 BP 114 / 87; Pulse 99; Resp 36 A; Pulse Ox 98% on 50% BiPAP; ae1 18:42 Weight 76.66 kg (R); ae1 19:29 BP 116 / 88; Pulse 90; Resp 21; Pulse Ox 99% on 50% BiPAP; lp1 20:30 BP 119 / 99; Pulse 90; Resp 24; Pulse Ox 98% on 50% BiPAP; lp1 21:30 BP 127 / 94; Pulse 84; Resp 26; Pulse Ox 98% on 50% BiPAP; lp1 ED Course: 17:22 Patient arrived in ED. as 17:22 Jorge Dwyer MD is Private Physician. as 17:24 Triage completed. la1 17:27 Edil Holland PA is PHCP. jr8 17:27 Jaime Hanna MD is Attending Physician. jr8 17:35 Peter Turcios, KLARISSA is Primary Nurse. ae1 17:35 Initial lab(s) drawn, by me, sent to lab. iw 17:39 Inserted saline lock: 22 gauge in right antecubital area, using aseptic technique. ae1 Blood collected. 17:43 Inserted saline lock: 20 gauge in left antecubital area, using aseptic technique. Blood iw collected. 17:45 EKG done, by ED staff, reviewed by Edil JACQUES. jb1 17:50 Arm band placed on right wrist. EKG completed in triage. Results shown to . ae1 17:58 Bed in low position. Call light in reach. Side rails up X2. Adult w/ patient. Cardiac ae1 monitor on. Pulse ox on. NIBP on. 17:59 XRAY Chest (1 view) In Process Unspecified. EDMS 18:21 Jorge Dwyer MD is Hospitalizing Provider. jr8 19:32 No provider procedures requiring assistance completed. Patient admitted, IV remains in lp1 place. Administered Medications: 17:45 Drug: Lasix 60 mg Route: IVP; Site: right antecubital; ae1 18:40 Follow up: Response: Other; 400 mls yellow urine ae1 18:21 Drug: Magnesium Sulfate 2 grams Route: IVPB; Infused Over: 2 hrs; Site: right ae1 antecubital; 18:40 Drug: SOLU-Medrol 125 mg Route: IVP; Site: left antecubital; ae1 19:34 Follow up: Response: No adverse reaction lp1 19:38 Drug: LevaQUIN 500 mg Volume: 100 ml; Route: IVPB; Infused Over: 60 mins; Site: left lp1 forearm; Intake: Output: 19:32 Urine: 400ml (Voided); Total: 400ml. lp1 Outcome: 18:22 Decision to Hospitalize by Provider. jr8 19:34 Condition: stable lp1 19:34 Instructed on the need for admit. 20:20 Admitted to Tele accompanied by nurse, via stretcher, room 414, with oxygen, with lp1 chart, Report called to KLARISSA Henry 22:00 Patient left the ED. lp1 Signatures: Dispatcher [employer] EDMS Jone Cabrera jbTiara Aguilar Irene, RN Althea Pak RN RN lp1 Edil Holland PA PA jr8 Didier Ruiz RN RN la1 Elliott, Andrea, RN RN ae1 Yaneth Robles3 Corrections: (The following items were deleted from the chart) 0402 04:01 04/01 22:22 Patient left the ED. lp1 lp1
--- NOTE | 2017-10-29 18:22 | EDPHYS ---
Physician Documentation [facility] Name: Peter Diego Age: 77 yrs Sex: Female : 1940 Arrival Date: 10/29/2017 Time: 17:22 Bed 2 Private MD: ED Physician Jaime Hanna HPI: 10/29 17:30 This 77 yrs old Female presents to ER via Wheelchair with complaints of jr8 Breathing Difficulty. 17:30 The patient has shortness of breath at rest. Onset: The symptoms/episode began/occurred jr8 acutely, today. Duration: The symptoms are continuous, and are steadily getting worse. The patient's shortness of breath is aggravated by exertion, talking, walking. Associated signs and symptoms: The patient has no apparent associated signs or symptoms. Severity of symptoms: At their worst the symptoms were severe in the emergency department the symptoms are unchanged. It is unknown whether or not the patient has had similar symptoms in the past. The patient has not recently seen a physician. Historical: - Allergies: 17:42 Hydrocodone-Acetaminophen; iw 17:42 Tramadol HCl; iw 17:42 PENICILLINS; iw - Home Meds: 18:53 metformin 500 mg Oral tab 1 tab 2 times per day [Active]; Omeprazole Oral [Active]; ae1 Oxybutynin Chloride Oral [Active]; 18:57 Lasix 40 mg Oral tab 1 tab once daily [Active]; ae1 19:00 Neurontin 300 mg Oral cap 1 cap 3 times per day [Active]; ae1 - PMHx: 17:55 CHF; COPD; Diabetes - NIDDM; iw 18:57 Hyperlipidemia; ae1 - PSHx: 17:55 ; Hernia repair; Knee surgery; iw - Immunization history:: Pneumococcal vaccine is up to date, Flu vaccine is up to date. - Social history:: Smoking status: Patient/guardian denies using tobacco. ROS: 17:30 Eyes: Negative for injury, pain, redness, and discharge, ENT: Negative for injury, jr8 pain, and discharge, Neck: Negative for injury, pain, and swelling, Cardiovascular: Negative for chest pain, palpitations, and edema, Abdomen/GI: Negative for abdominal pain, nausea, vomiting, diarrhea, and constipation, Back: Negative for injury and pain, MS/Extremity: Negative for injury and deformity, Skin: Negative for injury, rash, and discoloration, Neuro: Negative for headache, weakness, numbness, tingling, and seizure. 17:30 Respiratory: Positive for dyspnea on exertion, orthopnea, shortness of breath. Exam: 17:30 Eyes: Pupils equal round and reactive to light, extra-ocular motions intact. Lids and jr8 lashes normal. Conjunctiva and sclera are non-icteric and not injected. Cornea within normal limits. Periorbital areas with no swelling, redness, or edema. ENT: Nares patent. No nasal discharge, no septal abnormalities noted. Tympanic membranes are normal and external auditory canals are clear. Oropharynx with no redness, swelling, or masses, exudates, or evidence of obstruction, uvula midline. Mucous membranes moist. Neck: Trachea midline, no thyromegaly or masses palpated, and no cervical lymphadenopathy. Supple, full range of motion without nuchal rigidity, or vertebral point tenderness. No Meningismus. Abdomen/GI: Soft, non-tender, with normal bowel sounds. No distension or tympany. No guarding or rebound. No evidence of tenderness throughout. Back: No spinal tenderness. No costovertebral tenderness. Full range of motion. Skin: Warm, dry with normal turgor. Normal color with no rashes, no lesions, and no evidence of cellulitis. MS/ Extremity: Pulses equal, no cyanosis. Neurovascular intact. Full, normal range of motion. Neuro: Awake and alert, GCS 15, oriented to person, place, time, and situation. Cranial nerves II-XII grossly intact. Motor strength 5/5 in all extremities. Sensory grossly intact. Cerebellar exam normal. Normal gait. 17:30 Cardiovascular: Rate: tachycardic, Rhythm: regular, Pulses: Pulses are 2+ in right radial artery and left radial artery. Heart sounds: normal, normal S1and S2, no S3 or S4, no murmur, no rub, no gallop, Edema: 2+ edema to level of left midcalf, left ankle, left foot, right midcalf, right ankle and right foot, JVD: is not appreciated. 17:30 Respiratory: severe repiratory distress is noted, Respirations: labored breathing, intercostal retractions, tachypnea, Breath sounds: rales, that are moderate, are heard diffusely. Vital Signs: 17:42 BP 137 / 82; Pulse 104; Resp 30; Pulse Ox 95% on 50% BiPAP; ae1 18:06 Temp 97.9(A); ae1 18:23 BP 114 / 87; Pulse 99; Resp 36 A; Pulse Ox 98% on 50% BiPAP; ae1 18:42 Weight 76.66 kg (R); ae1 19:29 BP 116 / 88; Pulse 90; Resp 21; Pulse Ox 99% on 50% BiPAP; lp1 20:30 BP 119 / 99; Pulse 90; Resp 24; Pulse Ox 98% on 50% BiPAP; lp1 21:30 BP 127 / 94; Pulse 84; Resp 26; Pulse Ox 98% on 50% BiPAP; lp1 MDM: 17:27 Patient medically screened. jr8 18:21 Data reviewed: vital signs, nurses notes, lab test result(s), EKG, radiologic studies, jr8 plain films, and as a result, I will admit patient. Data interpreted: Pulse oximetry: on room air is 70 %. Interpretation: hypoxia. Counseling: I had a detailed discussion with the patient and/or guardian regarding: the historical points, exam findings, and any diagnostic results supporting the discharge/admit diagnosis, lab results, radiology results, the need for further work-up and treatment in the hospital. Physician consultation: Jorge Dwyer MD was called at 18:21, was contacted at 18:21, regarding admission, to the telemetry unit. consult, patient's condition, and will see patient. 10/29 17:27 Order name: Basic Metabolic Panel; Complete Time: 18:15 10/29 17:27 Order name: BNP; Complete Time: 18:15 10/29 17:27 Order name: CBC with Diff; Complete Time: 17:55 10/29 17:27 Order name: LFT's; Complete Time: 18:15 10/29 17:27 Order name: Magnesium; Complete Time: 18:15 10/29 17:27 Order name: PT-INR; Complete Time: 17:55 10/29 17:27 Order name: Ptt, Activated; Complete Time: 17:55 10/29 17:27 Order name: Troponin (emerg Dept Use Only); Complete Time: 18:15 10/29 17:27 Order name: ABG; Complete Time: 17:52 8 10/29 18:24 Order name: Urine Dipstick--Ancillary (enter results); Complete Time: 19:17 ms 10/29 18:32 Order name: Basic Metabolic Panel EDMS 10/29 18:32 Order name: Basic Metabolic Panel EDMS 10/29 18:32 Order name: BNP B-Type Natriuretic Peptide EDMS 10/29 18:32 Order name: BNP B-Type Natriuretic Peptide EDMS 10/29 17:27 Order name: XRAY Chest (1 view); Complete Time: 18:29 8 10/29 17:27 Order name: EKG; Complete Time: 17:28 [facility] 10/29 17:27 Order name: Cardiac monitoring; Complete Time: 17:39 [facility] 10/29 17:27 Order name: EKG - Nurse/Tech; Complete Time: 17:39 [facility] 10/29 17:27 Order name: IV Saline Lock; Complete Time: 17:39 [facility] 10/29 17:27 Order name: BIPAP [facility] 10/29 18:32 Order name: 2 GM Sodium EDMS 10/29 18:32 Order name: CBC with Automated Diff EDMS 10/29 18:32 Order name: CBC with Automated Diff EDMS 10/29 18:32 Order name: Troponin I EDMS 10/29 18:32 Order name: Troponin I EDMS 10/29 18:32 Order name: Troponin I EDMS 10/29 17:27 Order name: Labs collected and sent; Complete Time: 17:39 [facility] 10/29 17:27 Order name: O2 Per Protocol; Complete Time: 17:39 [facility] 10/29 17:27 Order name: O2 Sat Monitoring; Complete Time: 17:39 [facility] 10/29 17:27 Order name: Urine Dipstick-Ancillary (obtain specimen); Complete Time: 18:21 Administered Medications: 17:45 Drug: Lasix 60 mg Route: IVP; Site: right antecubital; ae1 18:40 Follow up: Response: Other; 400 mls yellow urine ae1 18:21 Drug: Magnesium Sulfate 2 grams Route: IVPB; Infused Over: 2 hrs; Site: right ae1 antecubital; 18:40 Drug: SOLU-Medrol 125 mg Route: IVP; Site: left antecubital; ae1 19:34 Follow up: Response: No adverse reaction lp1 19:38 Drug: LevaQUIN 500 mg Volume: 100 ml; Route: IVPB; Infused Over: 60 mins; Site: left lp1 forearm; Disposition: 10/29/17 18:22 Hospitalization ordered by Jorge Dwyer for Inpatient Admission. Preliminary diagnosis are Acute combined systolic (congestive) and diastolic (congestive) heart failure, Pulmonary fibrosis, unspecified, Acute respiratory failure with hypoxia. - Bed requested for Telemetry/MedSurg (Inpatient). - Status is Inpatient Admission. lp1 - Condition is Stable. - Problem is new. - Symptoms have improved. UTI on Admission? No Addendum: 12/02/2017 19:42 Co-signature as Attending Physician, Jaime Hanna MD I agree with the assessment and k dr plan of care. Signatures: Dispatcher [employer] EDMS Tali Lantigua, KLARISSA CYR Jaime Hanna MD MD [facility] Padmini Osorio RN RN Althea Shepard RN RN lp1 Edil Holland PA PA jr8 Peter Turcios RN RN ae1 Corrections: (The following items were deleted from the chart) 10/29 18:22 17:30 Cardiovascular: Rate: tachycardic, Rhythm: regular, Pulses: Pulses are 2+ in jr8 right radial artery and left radial artery. Heart sounds: normal, normal S1and S2, no S3 or S4, no murmur, no rub, no gallop, Edema: is not appreciated, JVD: is not appreciated, jr8 19:41 18:22 Hospitalization Ordered by Jorge Dwyer MD for Inpatient Admission. Preliminary kl diagnosis is Acute combined systolic (congestive) and diastolic (congestive) heart failure; Pulmonary fibrosis, unspecified; Acute respiratory failure with hypoxia. Bed requested for Telemetry/MedSurg (Inpatient). Status is Inpatient Admission. Condition is Stable. Problem is new. Symptoms have improved. UTI on Admission? No. jr8 22:22 19:41 10/29/2017 18:22 Hospitalization Ordered by Jorge Dwyer MD for Inpatient lp1 Admission. Preliminary diagnosis is Acute combined systolic (congestive) and diastolic (congestive) heart failure; Pulmonary fibrosis, unspecified; Acute respiratory failure with hypoxia. Bed requested for Telemetry/MedSurg (Inpatient). Status is Inpatient Admission. Condition is Stable. Problem is new. Symptoms have improved. UTI on Admission? No. kl
--- NOTE | 2017-10-29 18:23 | RAD REPORT ---
EXAM DESCRIPTION: Yelitza Single View10/29/2017 6:00 pm CLINICAL HISTORY: sob COMPARISON: none FINDINGS: Diffuse pulmonary opacities are present. The heart is mildly to moderately enlarged IMPRESSION: These findings likely represent CHF superimposed over pulmonary fibrosis
[2017-10-29] MEDS ORDERED: D50W 25 GM/50 ML SYRINGE IV PRN (18:29)
[2017-10-29] MEDS ORDERED: IPRATROPIUM BROM 0.5MG/2.5ML NEB PRN (18:29)
[2017-10-29] MEDS ORDERED: ONDANSETRON 4 MG/2 ML VIAL IV PRN (18:29)
[2017-10-29] MEDS ORDERED: ALBUTEROL 2.5 MG/3 ML NEB SOL NEB PRN (18:29)
[2017-10-29] MEDS ORDERED: GLUCAGON 1 MG/VIAL IM PRN (18:29)
[2017-10-29] MEDS ORDERED: Magnesium Sulfate 2gm IVPB 2 G/50 ML BAG IV ONE (18:34)
[2017-10-29 18:46] LABS: Urine Blood NEGATIVE (NEG); Urine Glucose 2+ (NEG); Urine Protein NEGATIVE (NEG); Urine Specific Gravity 1.015 (1.005-1.030)
[2017-10-29] MEDS ORDERED: METHYLPREDNISOLONE 125 MG INJ ONE (18:51)
[2017-10-29] MEDS ORDERED: Levofloxacin500mg IV 500 MG/100 ML BAG IV ONE (19:56)
--- NOTE | 2017-10-29 20:58 | P.HP ---
Certification for Inpatient Patient admitted to: Inpatient With expected LOS: >2 Midnights Practitioner: I am a practitioner with admitting privileges, knowledge of patient current condition, hospital course, and medical plan of care. Services: Services provided to patient in accordance with Admission requirements found in Title 42 Section 412.3 of the Code of Federal Regulations Patient History Date of Service: 10/29/17 Reason for admission: SEVERE SHORTNESS OF BREATH History of Present Illness: MS. BRAN HAS SEVERE PULMONARY FIBROSIS WITH PULSE OX AT HOME DOWN TO 70% ON MINIMAL EXERSION. SHE COMES WITH COUGH AND YELLOW SPUTUM FOR 3 WEEKS. SHE HAS DYSPNEA AT REST. SHE HAS THROAT PAIN BUT NO CHEST PAIN. Allergies hydrocodone [Hydrocodone] Allergy (Severe, Verified 07/02/17 18:35) Shortness of breath Penicillins Adverse Reaction (Verified 07/03/17 22:52) Unknown tramadol Adverse Reaction (Verified 07/03/17 22:55) Shortness of breath Home Medications: Gabapentin [Neurontin*] 300 mg PO TID 11/14/12 Omeprazole [Prilosec] 20 mg PO DAILY 04/09/14 Tiotropium [Spiriva Handihaler*] 18 mcg IH DAILY 11/03/14 Oxybutynin Chloride 5 mg PO DAILY 11/17/16 Fluticasone/Vilanterol [Breo Ellipta 200-25 Mcg INH] 1 each IH DAILY 07/02/17 Metformin HCl [Glucophage*] 500 mg PO BIDWM 07/02/17 Pravastatin Sodium [Pravachol] 20 mg PO DAILY 07/02/17 Prednisone [Deltasone] 10 mg PO DAILY 07/02/17 Albuterol Neb [Proventil 0.083% Neb Soln] 2.5 mg NEB Q4H PRN amp 07/05/17 Insulin -Regular Human [Novolin -R*] See Protocol SQ ACHS ml 07/05/17 Levofloxacin [Levaquin] 250 mg PO DAILY #7 tab 07/05/17 Metoprolol Succinate [Toprol Xl*] 25 mg PO LENPA7QU #30 tab 07/05/17 - Past Medical/Surgical History Diabetic: Yes -: COPD -: Hyperlipidemia -: htn -: Diabetes -: CHF -: sleep apnea -: dyspnea -: UTI -: Fall -: Chest pain -: Pulmonary Fibrosis -: c section -: hernia repair -: right knee sx -: Left elbow sx - Family History Mother -: GI disease Father -: GI disease, Cancer Notes: stomach cancer Brother -: Kidney disease - Social History Alcohol use: No CD- Drugs: No Caffeine use: Yes Review of Systems 10-point ROS is otherwise unremarkable General: Weakness, Malaise Respiratory: Shortness of Breath Physical Examination - Physical Exam General: Moderate distress, Obese HEENT: Atraumatic, PERRLA, Mucous membr. moist/pink, EOMI, Sclerae nonicteric Neck: Supple, 2+ carotid pulse no bruit, No LAD, Without JVD or thyroid abnormality Respiratory: Diminished, Crackles/rales (CHRONIC) Cardiovascular: Regular rate/rhythm, Normal S1 S2 Gastrointestinal: Normal bowel sounds, No tenderness Musculoskeletal: No tenderness Integumentary: No rashes Neurological: Normal gait, Normal speech, Normal strength at 5/5 x4 extr, Normal tone, Normal affect Lymphatics: No axilla or inguinal lymphadenopathy - Studies Laboratory Data (last 24 hrs) 10/29/17 17:35: PT 11.5, INR 0.97, APTT 23.7 L 10/29/17 17:35: WBC 10.9, Hgb 13.8, Hct 43.0, Plt Count 277 10/29/17 17:35: B-Natriuretic Peptide 224 H 10/29/17 17:35: Sodium 136, Potassium 4.5, BUN 17, Creatinine 0.78, Glucose 381 H, Magnesium 1.5 L, Total Bilirubin 0.7, AST 34, ALT 33, Alkaline Phosphatase 82 Assessment and Plan - Problems (Diagnosis) (1) Atypical pneumonia Current Visit: Yes Status: Acute Plan: MS. BRAN HAS NO SIGNS OF CHF. JVD IS INVISIBLE. SHE HAS NO GALLOP ON EXAMINATION. CLINICAL PICTURE IS OF INTERSTITIAL PNEUMONIA ONTOP OF CHRONIC PULMONARY FIBROSIS. I ADVISED ABX AND STEROIDS FOR NOW. SUGAR WILL GO UP AND WILL STOP STEROIDS SOON. I CALLED DR. JORDAN. HE KNOWS HER WELL FOR HER SEVERE RESTING HYPOXIA FROM PULMOANRY FIBROSIS. PROGNOSIS IS GUARDED. (2) Pulmonary fibrosis Onset Date: 11/17/16 Current Visit: No Status: Chronic Plan: ABOVE CHRONIC STEROIDS (3) Diabetes Current Visit: Yes Status: Acute Plan: GLUCOSE WILL GO HIGH WITH TREATMENT OF ACUTE RESP DISTRESS AGG SL SCALE. CHECK A1C IN AM. Qualifiers: Diabetes mellitus type: type 2 - Advance Directives Does patient have a Living Will: No Does patient have a Durable POA for Healthcare: No
[2017-10-29] MEDS: Levofloxacin500mg IV 500 MG/100 ML BAG IV SCH (21:00)
[2017-10-29] MEDS: INSULIN -REGULAR HUMAN 50 UNIT/0.5 ML ML SQ SCH (23:00)
[2017-10-30] MEDS: Levofloxacin500mg IV 500 MG/100 ML BAG IV SCH ×2 (00:02→21:10)
[2017-10-30] MEDS: METHYLPREDNISOLONE 40 MG INJ IV SCH ×4 (00:35→17:06)
[2017-10-30 04:23] LABS: Absolute Lymphocytes (CBC) 0.8 K/uL (0.7-4.9); Absolute Neutrophil 7.2 K/uL (1.8-8.0); Basophils % 0.2 % (0-1.3); Lymphocytes % 9.6 % (15.3-44.8); MCH 33.5 pg (27.0-35.0); MCV 100.4 fL (80-100); MPV 8.1 fL (7.6-11.3); Monocytes % 0.5 % (3.3-12.3); RBC Red Blood Cell Count 3.88 M/uL (3.86-4.86)
[2017-10-30 04:35] LABS: BUN Blood Urea Nitrogen 17 mg/dL (6-20); Bicarbonate 29 mEq/L (21-31); Glomerular Filtration Rate > 90 mL/min (=/>90); Glucose Level 275 mg/dL (65-120); Sodium Level 140 mEq/L (135-145)
[2017-10-30 06:10] LABS: Blood Morphology Comment NOT SEEN (NOT SEEN); Platelet Estimate ADEQ
[2017-10-30] MEDS ORDERED: ALBUTEROL 2.5 MG/3 ML NEB SOL NEB PRN (07:04)
--- NOTE | 2017-10-30 07:07 | EKG ---
Test Date: 2017-10-29 Test Time: 17:40:46 Wearing Apparel Shaker: PAYAL MEASUREMENT RESULTS: Intervals: Rate: 109 PA: 144 QRSD: 82 QT: 326 QTc: 439 Chestnut: P: 38 PA: 144 QRS: 83 T: 11 INTERPRETIVE STATEMENTS: Sinus tachycardia with premature atrial complexes Otherwise normal ECG Compared to ECG 07/02/2017 14:18:33 supraventricular beat(s) now present Sinus rhythm no longer present ST (T wave) deviation no longer present Electronically Signed On 10-30-17 07:07:03 CDT by Mina Lu
[2017-10-30] MEDS: LIRAGLUTIDE 1.2 MG SQ SCH (08:00)
[2017-10-30] MEDS ORDERED: PNEUMOCOCCAL VACCINE 0.5 ML IMVAC ONE (08:00)
--- NOTE | 2017-10-30 08:25 | P.CNS ---
Date of Consult: 10/30/17 Reason for Consult: Shortness of breath Chief Complaint: SEVERE SHORTNESS OF BREATH History of Present Illness: Patient is 77 years of age well known to me she has a history of pulmonary fibrosis admitted with hypoxemia shortness of breath she appears to be distressed patient is Wolof-speaking only has significant desaturation on mild exertion Allergies hydrocodone [Hydrocodone] Allergy (Severe, Verified 07/02/17 18:35) Shortness of breath Penicillins Adverse Reaction (Verified 07/03/17 22:52) Unknown tramadol Adverse Reaction (Verified 07/03/17 22:55) Shortness of breath Hydrocodone-Acetamin Allergy (Uncoded 10/29/17 22:27) Unknown Tramadol HCl Allergy (Uncoded 10/29/17 22:27) Unknown Home Medications: Gabapentin [Neurontin*] 300 mg PO TID 11/14/12 Omeprazole [Prilosec] 20 mg PO DAILY 04/09/14 Tiotropium [Spiriva Handihaler*] 18 mcg IH DAILY 11/03/14 Oxybutynin Chloride 5 mg PO DAILY 11/17/16 Metformin HCl [Glucophage*] 500 mg PO BIDWM 07/02/17 Pravastatin Sodium [Pravachol] 20 mg PO DAILY 07/02/17 Albuterol Neb [Proventil 0.083% Neb Soln] 2.5 mg NEB Q4H PRN amp 07/05/17 Albuterol Neb [Proventil 0.083% Neb Soln] 1 vial IH DAILY 10/30/17 Arformoterol Tartrate [Brovana] 1 puff IH DAILY 10/30/17 Diltiazem HCl [Diltiazem 24Hr ER] 120 mg PO DAILY 10/30/17 Furosemide [Furosemide] 40 mg PO DAILY 10/30/17 Liraglutide [Victoza 2-Augie] 1.2 mg SQ DAILY WITH BREAKFAST 10/30/17 Potassium Chloride [Potassium Chloride] 10 meq PO DAILY 10/30/17 Raloxifene HCl [Raloxifene HCl] 60 mg PO DAILY 10/30/17 - Past Medical/Surgical History Diabetic: Yes -: COPD -: Hyperlipidemia -: htn -: Diabetes -: CHF -: sleep apnea -: dyspnea -: UTI -: Fall -: Chest pain -: Pulmonary Fibrosis -: c section -: hernia repair -: right knee sx -: Left elbow sx - Family History Mother Medical History: GI disease Father Medical History: GI disease, Cancer Notes: stomach cancer Brother Medical History: Kidney disease - Social History Smoking Status: Former smoker Alcohol use: No CD- Drugs: No Caffeine use: Yes Place of Residence: Home Review of Systems is unable to be obtained Physical Examination Temp Pulse Resp BP Pulse Ox 97.6 F 78 24 H 116/85 96 10/29/17 23:00 10/29/17 23:00 10/29/17 23:00 10/29/17 23:00 10/29/17 23:00 General: Moderate distress Neck: Supple Respiratory: Crackles/rales (Extensive crackles bilaterally) Cardiovascular: No edema, Normal S1 S2 Gastrointestinal: Normal bowel sounds, Soft and benign Laboratory Data (last 24 hrs) 10/29/17 17:35: PT 11.5, INR 0.97, APTT 23.7 L 10/29/17 17:35: WBC 10.9, Hgb 13.8, Hct 43.0, Plt Count 277 10/29/17 17:35: B-Natriuretic Peptide 224 H 10/29/17 17:35: Sodium 136, Potassium 4.5, BUN 17, Creatinine 0.78, Glucose 381 H, Magnesium 1.5 L, Total Bilirubin 0.7, AST 34, ALT 33, Alkaline Phosphatase 82 - Problems (1) Pulmonary fibrosis Current Visit: No Status: Acute Plan: Patient is 77 years of age with a history off for pulmonary fibrosis admitted with a presumed exacerbation patient is on diuretics at home continue with diuresis last echo shows severe pulmonary hypertension no evidence of right ventricular dilatation presumed diastolic dysfunction and antibiotics steroids patient has mild Meckel cytosis otherwise unremarkable labs I have ordered a D- dimer he was normal probably thromboembolism can be excluded otherwise she will need a CT angio
[2017-10-30] MEDS: METFORMIN HCL 500 MG TAB PO SCH ×2 (08:45→17:06)
[2017-10-30] MEDS: POTASSIUM CL SA 10 MEQ TAB PO SCH (08:45)
[2017-10-30] MEDS: PANTOPRAZOLE 40MG TABLET PO SCH (08:45)
[2017-10-30] MEDS: INSULIN -REGULAR HUMAN 50 UNIT/0.5 ML ML SQ SCH ×4 (08:45→21:47)
[2017-10-30] MEDS: OXYBUTYNIN CHLORIDE 5 MG TAB PO SCH (08:45)
[2017-10-30] MEDS: DILTIAZEM HCL 120 MG SR CAP PO SCH (08:45)
[2017-10-30] MEDS: GABAPENTIN 300 MG CAP PO SCH ×3 (08:46→21:10)
[2017-10-30] MEDS: FUROSEMIDE 40 MG/4 ML VIAL IV SCH (09:00)
[2017-10-30] MEDS ORDERED: FUROSEMIDE 20 MG/ 2ML VIAL IV SCH (09:00)
[2017-10-30] MEDS ORDERED: TIOTROPIUM 5 SPRAYS/INHALER IH SCH (09:00)
--- NOTE | 2017-10-30 12:19 | RAD REPORT ---
EXAM DESCRIPTION: CT - Chest For Pe Angio - 10/30/2017 11:57 am CLINICAL HISTORY: Chest pain. Shortness of breath COMPARISON: 07/03/2017 TECHNIQUE: CT angiogram of the pulmonary arteries was performed with MIP. All CT scans are performed using dose optimization technique as appropriate and may include automated exposure control or mA/KV adjustment according to patient size. FINDINGS: No evidence of pulmonary thromboembolism. No acute aortic finding demonstrated. The lungs are reduced in volume with fibrotic changes present. Mild ground-glass opacity present bila terally. No significant pericardial or pleural fluid. No concerning bony finding. Cholelithiasis. IMPRESSION: No evidence of pulmonary thromboembolism. Pulmonary fibrotic changes are suspected. Cholelithiasis.
[2017-10-30] MEDS: ALBUTEROL 2.5 MG/3 ML NEB SOL IH SCH (14:04)
[2017-10-30] MEDS: ARFORMOTEROL TARTRATE 15 MCG/2 ML VIAL.NEB IH SCH (14:04)
--- NOTE | 2017-10-30 20:45 | P.PN ---
Subjective Date of Service: 10/30/17 Chief Complaint: SEVERE SHORTNESS OF BREATH Subjective: Improving (SHE FEELS BETTER BUT STILL DYSPNEIC AT REST) Review of Systems 10-point ROS is otherwise unremarkable General: Weakness, Malaise Physical Examination - Vital Signs Temperature: 97.4 F Blood Pressure: 102/68 Pulse: 84 Respirations: 43 Pulse Ox (%): 95 - Physical Exam General: Alert, Moderate distress, Obese HEENT: Atraumatic, PERRLA, EOMI Neck: Supple, JVD not distended Respiratory: Diminished, Crackles/rales Cardiovascular: Regular rate/rhythm, Normal S1 S2 Gastrointestinal: Normal bowel sounds, No tenderness Musculoskeletal: No tenderness Integumentary: No rashes Neurological: Normal speech, Normal tone, Normal affect Lymphatics: No axilla or inguinal lymphadenopathy - Studies Microbiology Data (last 24 hrs): 10/29/17 00:00 Nasopharnyx Influenza Type A Antigen Screen - Final 10/29/17 00:00 Nasopharnyx Influenza Type B Antigen Screen - Final Medications List Reviewed: Yes Assessment And Plan - Current Problems (Diagnosis) (1) Atypical pneumonia Current Visit: Yes Status: Acute Plan: MS. BRAN HAS NO SIGNS OF CHF. JVD IS INVISIBLE. SHE HAS NO GALLOP ON EXAMINATION. CLINICAL PICTURE IS OF INTERSTITIAL PNEUMONIA ONTOP OF CHRONIC PULMONARY FIBROSIS. I ADVISED ABX AND STEROIDS FOR NOW. SUGAR WILL GO UP AND WILL STOP STEROIDS SOON. I CALLED DR. JORDAN. HE KNOWS HER WELL FOR HER SEVERE RESTING HYPOXIA FROM PULMOANRY FIBROSIS. PROGNOSIS IS GUARDED. (2) Pulmonary fibrosis Onset Date: 11/17/16 Current Visit: No Status: Chronic Plan: ABOVE CHRONIC STEROIDS SEVERE FIBROSIS WITH SEVERE PULMONARY HTN. (3) Diabetes Current Visit: Yes Status: Acute Plan: GLUCOSE WILL GO HIGH WITH TREATMENT OF ACUTE RESP DISTRESS AGG SL SCALE. CHECK A1C IN AM. Qualifiers: Diabetes mellitus type: type 2 (4) Moderate to severe pulmonary hypertension Current Visit: Yes Status: Chronic Plan: PROGNOSIS REMAINS POOR FAMILY IS IN A DENIAL ABOUT HER SERIOUS CONDITION. I HAVE TALKED TO THEM BEFORE AND THEY TELL ME THAT HOLINESS DOES NOT THINK THERE IS MUCH WRONG AND SHE IS A LOT BETTER. IN MY OPINION SHE LIVES ON A VERY LITTLE RESERVE OF HER PULMONARY FUNCTION SHE HAS SEVERE PULMONARY HTN.
[2017-10-30] MEDS: ATORVASTATIN 10 MG TAB PO SCH (21:10)
[2017-10-31] MEDS: METHYLPREDNISOLONE 40 MG INJ IV SCH ×4 (00:57→17:26)
[2017-10-31] MEDS: PANTOPRAZOLE 40MG TABLET PO SCH (05:48)
[2017-10-31] MEDS: LIRAGLUTIDE 1.2 MG SQ SCH (08:00)
[2017-10-31] MEDS: INSULIN -REGULAR HUMAN 50 UNIT/0.5 ML ML SQ SCH ×4 (09:03→21:42)
[2017-10-31] MEDS: DILTIAZEM HCL 120 MG SR CAP PO SCH (09:04)
[2017-10-31] MEDS: POTASSIUM CL SA 10 MEQ TAB PO SCH (09:04)
[2017-10-31] MEDS: OXYBUTYNIN CHLORIDE 5 MG TAB PO SCH (09:05)
[2017-10-31] MEDS: METFORMIN HCL 500 MG TAB PO SCH ×2 (09:05→17:25)
[2017-10-31] MEDS: FUROSEMIDE 40 MG/4 ML VIAL IV SCH (09:05)
[2017-10-31] MEDS: GABAPENTIN 300 MG CAP PO SCH ×3 (09:05→21:42)
[2017-10-31] MEDS: ENOXAPARIN 30 MG/0.3 ML SQ SCH (09:10)
[2017-10-31] MEDS: ALBUTEROL 2.5 MG/3 ML NEB SOL IH SCH (09:18)
[2017-10-31] MEDS: ARFORMOTEROL TARTRATE 15 MCG/2 ML VIAL.NEB IH SCH (09:18)
--- NOTE | 2017-10-31 12:59 | P.PN ---
Subjective Date of Service: 10/31/17 Chief Complaint: SEVERE SHORTNESS OF BREATH Subjective: No new changes (STILL WANTS AND NEEDS BIPAP FOR BREATHING.) Review of Systems 10-point ROS is otherwise unremarkable General: Weakness, Malaise Respiratory: Shortness of Breath Physical Examination - Vital Signs Temperature: 97.6 F Blood Pressure: 123/63 Pulse: 64 Respirations: 26 Pulse Ox (%): 97 - Physical Exam General: Alert, Severe distress, Obese HEENT: Atraumatic, PERRLA, EOMI Neck: Supple, JVD not distended Respiratory: Diminished Cardiovascular: Regular rate/rhythm, Normal S1 S2 Gastrointestinal: Normal bowel sounds, No tenderness Musculoskeletal: No tenderness Integumentary: No rashes Neurological: Normal speech, Normal tone, Normal affect Lymphatics: No axilla or inguinal lymphadenopathy - Studies Medications List Reviewed: Yes Assessment And Plan - Current Problems (Diagnosis) (1) Atypical pneumonia Current Visit: Yes Status: Acute Plan: MS. BRAN HAS NO SIGNS OF CHF. JVD IS INVISIBLE. SHE HAS NO GALLOP ON EXAMINATION. CLINICAL PICTURE IS OF INTERSTITIAL PNEUMONIA ONTOP OF CHRONIC PULMONARY FIBROSIS. I ADVISED ABX AND STEROIDS FOR NOW. SUGAR WILL GO UP AND WILL STOP STEROIDS SOON. I CALLED DR. JORDAN. HE KNOWS HER WELL FOR HER SEVERE RESTING HYPOXIA FROM PULMOANRY FIBROSIS. PROGNOSIS IS GUARDED. (2) Pulmonary fibrosis Onset Date: 11/17/16 Current Visit: No Status: Chronic Plan: ABOVE CHRONIC STEROIDS SEVERE FIBROSIS WITH SEVERE PULMONARY HTN. SEVERE HYPOXIA DR. JORDAN CALLED THERE IS NO CURE TO THIS ILLNESS NEEDS BIPAP ALL THE TIME. WILL DO ABG RA. (3) Diabetes Current Visit: Yes Status: Acute Plan: GLUCOSE WILL GO HIGH WITH TREATMENT OF ACUTE RESP DISTRESS AGG SL SCALE. CHECK A1C IN AM. Qualifiers: Diabetes mellitus type: type 2 (4) Moderate to severe pulmonary hypertension Current Visit: Yes Status: Chronic Plan: PROGNOSIS REMAINS POOR FAMILY IS IN A DENIAL ABOUT HER SERIOUS CONDITION. I HAVE TALKED TO THEM BEFORE AND THEY TELL ME THAT [employer]ATION DOES NOT THINK THERE IS MUCH WRONG AND SHE IS A LOT BETTER. IN MY OPINION SHE LIVES ON A VERY LITTLE RESERVE OF HER PULMONARY FUNCTION SHE HAS SEVERE PULMONARY HTN.
[2017-10-31] MEDS: ACETAMINOPHEN 500 MG TAB PO PRN (15:34)
[2017-10-31 16:06] LABS: Arterial Blood Carboxyhemoglob 1.5 % (0-1.5); Blood Gas Oxyhemoglobin 62.8 % (94-97); Blood O2 Saturation 65.1 % (92-98.5)
[2017-10-31] MEDS: Levofloxacin500mg IV 500 MG/100 ML BAG IV SCH (21:41)
[2017-10-31] MEDS: ATORVASTATIN 10 MG TAB PO SCH (21:42)
[2017-11-01 05:38] VITALS: BMI 32.7
[2017-11-01] MEDS: PANTOPRAZOLE 40MG TABLET PO SCH (06:38)
[2017-11-01] MEDS: LIRAGLUTIDE 1.2 MG SQ SCH (08:00)
--- NOTE | 2017-11-01 08:07 | P.PN ---
Subjective Date of Service: 11/01/17 Chief Complaint: Exacerbation of pulmonary fibrosis Patient's condition is stable she is still on a BiPAP no evidence of sepsis Review of Systems is unable to be obtained Physical Examination - Vital Signs Temperature: 97.6 F Blood Pressure: 102/66 Pulse: 70 Respirations: 20 Pulse Ox (%): 98 - Physical Exam General: Alert, Cooperative Respiratory: Crackles/rales (Bilateral crackles) Cardiovascular: No edema, Normal S1 S2 - Studies Medications List Reviewed: Yes Assessment & Plan - Problems (Diagnosis) (1) Pulmonary fibrosis Current Visit: No Status: Acute Plan: Patient is 77 years of age admitted with exacerbation of pulmonary fibrosis is currently stable plan to wean her off the BiPAP tried nasal cannula oxygen check arterial blood gases patient steroids was stopped 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 levofloxacin and Lasix vital signs stayed labs reviewed
[2017-11-01] MEDS: INSULIN -REGULAR HUMAN 50 UNIT/0.5 ML ML SQ SCH ×4 (08:59→21:40)
[2017-11-01] MEDS: ALBUTEROL 2.5 MG/3 ML NEB SOL IH SCH (09:31)
[2017-11-01] MEDS: ARFORMOTEROL TARTRATE 15 MCG/2 ML VIAL.NEB IH SCH (09:31)
[2017-11-01] MEDS: METFORMIN HCL 500 MG TAB PO SCH ×2 (11:11→17:30)
[2017-11-01] MEDS: POTASSIUM CL SA 10 MEQ TAB PO SCH (11:12)
[2017-11-01] MEDS: OXYBUTYNIN CHLORIDE 5 MG TAB PO SCH (11:12)
[2017-11-01] MEDS: DILTIAZEM HCL 120 MG SR CAP PO SCH (11:12)
[2017-11-01] MEDS: GABAPENTIN 300 MG CAP PO SCH ×3 (11:12→21:40)
[2017-11-01] MEDS: levoFLOXacin 500 MG TAB PO SCH (11:13)
[2017-11-01] MEDS: FUROSEMIDE 40 MG TABLET PO SCH (11:13)
[2017-11-01] MEDS: ACETAMINOPHEN 500 MG TAB PO PRN ×2 (11:16→21:42)
[2017-11-01] MEDS: ENOXAPARIN 30 MG/0.3 ML SQ SCH (11:17)
[2017-11-01 15:11] LABS: Blood Gas Oxyhemoglobin 84.7 % (94-97)
--- NOTE | 2017-11-01 21:31 | P.PN ---
Subjective Date of Service: 11/01/17 Chief Complaint: Exacerbation of pulmonary fibrosis Subjective: Improving (STILL VERY DYSPEIC AT REST.) Review of Systems 10-point ROS is otherwise unremarkable General: Weakness, Malaise Respiratory: Shortness of Breath Physical Examination - Vital Signs Temperature: 97.6 F Blood Pressure: 96/65 Pulse: 81 Respirations: 18 Pulse Ox (%): 91 - Physical Exam General: Alert, Moderate distress, Obese HEENT: Atraumatic, PERRLA, EOMI Neck: Supple, JVD not distended Respiratory: Diminished, Crackles/rales Cardiovascular: Regular rate/rhythm, Normal S1 S2 Gastrointestinal: Normal bowel sounds, No tenderness Musculoskeletal: No tenderness Integumentary: No rashes Neurological: Normal speech, Normal tone, Normal affect Lymphatics: No axilla or inguinal lymphadenopathy - Studies Medications List Reviewed: Yes Assessment And Plan - Current Problems (Diagnosis) (1) Atypical pneumonia Current Visit: Yes Status: Acute Plan: MS. BRAN HAS NO SIGNS OF CHF. JVD IS INVISIBLE. SHE HAS NO GALLOP ON EXAMINATION. CLINICAL PICTURE IS OF INTERSTITIAL PNEUMONIA ONTOP OF CHRONIC PULMONARY FIBROSIS. I ADVISED ABX AND STEROIDS FOR NOW. SUGAR WILL GO UP AND WILL STOP STEROIDS SOON. I CALLED DR. JORDAN. HE KNOWS HER WELL FOR HER SEVERE RESTING HYPOXIA FROM PULMOANRY FIBROSIS. PROGNOSIS IS GUARDED. (2) Pulmonary fibrosis Onset Date: 11/17/16 Current Visit: No Status: Chronic Plan: ABOVE CHRONIC STEROIDS SEVERE FIBROSIS WITH SEVERE PULMONARY HTN. SEVERE HYPOXIA DR. JORDAN CALLED THERE IS NO CURE TO THIS ILLNESS NEEDS BIPAP ALL THE TIME. WILL DO ABG RA. SEVERE O2 SAT DOWN TO 66% RA ON BASELINE WITH OXYGEN 3-4 LT SHE GOES UP TO 89 BUT AGAIN WITH EFFORT OF EATING , EVEN WITH OXYGEN SHE IS DOWN TO 82%. (3) Diabetes Current Visit: Yes Status: Acute Plan: GLUCOSE WILL GO HIGH WITH TREATMENT OF ACUTE RESP DISTRESS AGG SL SCALE. CHECK A1C IN AM. Qualifiers: Diabetes mellitus type: type 2 (4) Moderate to severe pulmonary hypertension Current Visit: Yes Status: Chronic Plan: PROGNOSIS REMAINS POOR FAMILY IS IN A DENIAL ABOUT HER SERIOUS CONDITION. I HAVE TALKED TO THEM BEFORE AND THEY TELL ME THAT [employer] DOES NOT THINK THERE IS MUCH WRONG AND SHE IS A LOT BETTER. IN MY OPINION SHE LIVES ON A VERY LITTLE RESERVE OF HER PULMONARY FUNCTION SHE HAS SEVERE PULMONARY HTN.
[2017-11-01] MEDS: ATORVASTATIN 10 MG TAB PO SCH (21:40)
[2017-11-02 04:39] VITALS: O2SAT 95
[2017-11-02] MEDS: ACETAMINOPHEN 500 MG TAB PO PRN (05:25)
[2017-11-02] MEDS: PANTOPRAZOLE 40MG TABLET PO SCH (05:25)
[2017-11-02] MEDS: ALBUTEROL 2.5 MG/3 ML NEB SOL IH SCH (07:15)
[2017-11-02] MEDS: ARFORMOTEROL TARTRATE 15 MCG/2 ML VIAL.NEB IH SCH (07:15)
[2017-11-02] MEDS: LIRAGLUTIDE 1.2 MG SQ SCH (08:00)
[2017-11-02 08:54] VITALS: TEMP 97
[2017-11-02] MEDS: INSULIN -REGULAR HUMAN 50 UNIT/0.5 ML ML SQ SCH ×2 (09:17→12:27)
[2017-11-02] MEDS: DILTIAZEM HCL 120 MG SR CAP PO SCH (09:20)
[2017-11-02] MEDS: levoFLOXacin 500 MG TAB PO SCH (09:21)
[2017-11-02] MEDS: FUROSEMIDE 40 MG TABLET PO SCH (09:21)
[2017-11-02] MEDS: POTASSIUM CL SA 10 MEQ TAB PO SCH (09:21)
[2017-11-02] MEDS: GABAPENTIN 300 MG CAP PO SCH ×2 (09:21→13:49)
[2017-11-02] MEDS: OXYBUTYNIN CHLORIDE 5 MG TAB PO SCH (09:21)
[2017-11-02] MEDS: METFORMIN HCL 500 MG TAB PO SCH (09:21)
[2017-11-02] MEDS: ENOXAPARIN 30 MG/0.3 ML SQ SCH (09:23)
[2017-11-02 12:22] VITALS: BP 100/69
--- NOTE | 2017-11-02 21:39 | P.DS ---
Admission Date: 10/29/17 Discharge Date: 11/03/17 Disposition: ROUTINE DISCHARGE Discharge Condition: SERIOUS Reason for Admission: Exacerbation of pulmonary fibrosis - Problems (1) Atypical pneumonia Status: Acute (2) Pulmonary fibrosis Onset Date: 11/17/16 Status: Chronic (3) Diabetes Status: Acute Qualifiers: Diabetes mellitus type: type 2 (4) Moderate to severe pulmonary hypertension Status: Chronic Brief History of Present Illness: MS. BRAN HAS SEVERE PULMONARY FIBROSIS WITH PULSE OX AT HOME DOWN TO 70% ON MINIMAL EXERSION. SHE COMES WITH COUGH AND YELLOW SPUTUM FOR 3 WEEKS. SHE HAS DYSPNEA AT REST. SHE HAS THROAT PAIN BUT NO CHEST PAIN. MRS. BRAN HAS SEVERE PULMONARY FIBROSIS AND SEVERE PULMONARY HTN. SHE IS HYPOXIC AT REST WITH SAT OF 62% ON RA. SHE GOT EVEN WORSE NEEDING IV SEROIDS AND BIPAP. SHE HAS IMRPOVED SOME TO HER BASELING. DC HOME TODAY ON ORAL [place]. Hospital Course: MR. BRAN HAS SEVERE PULMONARY FIBROSIS AND SEVERE PULMONARY HTN. SHE COMES WITH RESPIRATORY FAILURE WITH O2 SAT OF 66% ON OXYGEN AND SO WAS ADMITTED. SHE IMPROVED AGAIN TO HER BASELIINE WITH STEROIDS, ABX AND NEBS IN ADDITION TO BIPAP. SHE IS DISCHARGE HOME IN STABLE BUT POOR GENERAL CONDITION WITH MAXIMUM IMPROVEMENT POSSIBLE. Vital Signs/Physical Exam: Temp Pulse Resp BP Pulse Ox 97.0 F 89 18 100/69 94 11/02/17 12:21 11/02/17 12:21 11/02/17 12:21 11/02/17 12:21 11/02/17 12:21 Laboratory Data at Discharge: WBC 8.1 K/uL (4.3-10.9) D 10/30/17 03:30 Hgb 13.0 g/dL (12.0-15.0) 10/30/17 03:30 Hct 39.0 % (36.0-45.0) 10/30/17 03:30 Plt Count 252 K/uL (152-406) 10/30/17 03:30 PT 11.5 SECONDS (9.5-12.5) 10/29/17 17:35 INR 0.97 10/29/17 17:35 APTT 23.7 SECONDS (24.3-36.9) L 10/29/17 17:35 Sodium 140 mEq/L (135-145) 10/30/17 03:30 Potassium 4.0 mEq/L (3.6-5.0) 10/30/17 03:30 BUN 17 mg/dL (6-20) 10/30/17 03:30 Creatinine 0.64 mg/dL (0.44-1.00) 10/30/17 03:30 Glucose 275 mg/dL (65-120) H 10/30/17 03:30 Magnesium 1.5 mg/dL (1.8-2.5) L 10/29/17 17:35 Total Bilirubin 0.7 mg/dL (0.3-1.2) 10/29/17 17:35 AST 34 IU/L (10-42) 10/29/17 17:35 ALT 33 IU/L (10-60) 10/29/17 17:35 Alkaline Phosphatase 82 IU/L (42-121) 10/29/17 17:35 Troponin I < 0.03 ng/mL (<0.03) 10/29/17 23:45 B-Natriuretic Peptide 224 pg/ml (<=100) H 10/29/17 17:35 Home Medications: Gabapentin [Neurontin*] 300 mg PO TID 11/14/12 Omeprazole [Prilosec] 20 mg PO DAILY 04/09/14 Tiotropium [Spiriva Handihaler*] 18 mcg IH DAILY 11/03/14 Oxybutynin Chloride 5 mg PO DAILY 11/17/16 Metformin HCl [Glucophage*] 500 mg PO BIDWM 07/02/17 Pravastatin Sodium [Pravachol] 20 mg PO DAILY 07/02/17 Albuterol Neb [Proventil 0.083% Neb Soln] 2.5 mg NEB Q4H PRN amp 07/05/17 Albuterol Neb [Proventil 0.083% Neb Soln] 1 vial IH DAILY 10/30/17 Arformoterol Tartrate [Brovana] 1 puff IH DAILY 10/30/17 Diltiazem HCl [Diltiazem 24Hr ER] 120 mg PO DAILY 10/30/17 Furosemide [Furosemide] 40 mg PO DAILY 10/30/17 Liraglutide [Victoza 2-Augie] 1.2 mg SQ DAILY WITH BREAKFAST 10/30/17 Potassium Chloride [Potassium Chloride] 10 meq PO DAILY 10/30/17 Raloxifene HCl [Raloxifene HCl] 60 mg PO DAILY 10/30/17 Levofloxacin [Levaquin] 250 mg PO DAILY #7 tab 11/02/17 New Medications: Levofloxacin [Levaquin] 250 mg PO DAILY #7 tab
== END 2017-11-02 14:02 | disposition home or self-care (01) | DRG 193 ==
LOC: ER 17:20 → ERHOLD 18:28 → 4TH 20:19
PROVIDERS: ADMIT Internal Medicine; ATTEND Internal Medicine
PROC: 5A09457 Assistance with Respiratory Ventilation, 24-96 Consecutive Hours, Continuous Positive Airway Pressure (ICD-10-PCS; principal; 2017-10-29)
DX: J18.9 Pneumonia, unspecified organism (principal); J96.91 Respiratory failure, unspecified with hypoxia; J84.10 Pulmonary fibrosis, unspecified; E11.9 Type 2 diabetes mellitus without complications; I27.20 Pulmonary hypertension, unspecified; Z88.0 Allergy status to penicillin
CPT/HCPCS: 36415; 71045; 71275; 80048; 80076; 81003; 82805; 82962; 83735; 83880; 84484; 85025; 85379; 85610; 85730; 87804; 93005; 94640; 94660; 99291; J1650; J2920; J2930; J3475; J7605; Q9967

== ENCOUNTER 2017-11-21 00:31 | Inpatient (IN) | payer OTHER ==
--- OUTSIDE RECORDS SUMMARY | 2017-11-21 00:33 | XMS REPORT | Clinical Summary ---
:1940 Author Organization [facility] Address [address] [place] [address] Care Team Providers Name Role Phone Asked, [...] Bacon MD Lock, Zeinab Herrera MD after 11/20/2016 Social History Tobacco Use Types Packs/Day Years Used Date Never Smoker Smokeless Tobacco: Never Used Alcohol Use Drinks/Week oz/Week Comments No Sex Assigned at Date Recorded Not on file Last Filed Vital Signs Vital Sign Reading Time Taken Blood Pressure 97/65 07/09/2017 1:30 PM PROGRAM THERAPIST Pulse 68 07/09/2017 1:30 PM PROGRAM THERAPIST Temperature 36.6 C (97.9 F) 07/09/2017 1:30 PM PROGRAM THERAPIST Respiratory Rate 20 07/09/2017 1:30 PM PROGRAM THERAPIST Oxygen Saturation 95% 07/09/2017 1:30 PM PROGRAM THERAPIST Inhaled Oxygen Concentration - - Weight 73.5 kg (162 lb) 07/09/2017 5:00 AM PROGRAM THERAPIST Height 149.9 cm (4' 11") 07/06/2017 12:33 AM PROGRAM THERAPIST Body Mass Index 32.72 07/09/2017 5:00 AM PROGRAM THERAPIST Plan of Treatment Health Maintenance Due Date Last Done Comments COLONOSCOPY 1992 MAMMOGRAM 1992 ZOSTER VACCINE 2002 PNEUMOCOCCAL POLYSACCHARIDE VACCINE AGE 65 AND OVER 2007 PNEUMOCOCCAL-13 2007 INFLUENZA VACCINE 02/28/2018 Procedures Procedure Name Priority Date/Time Associated Comments Diagnosis ECHOCARDIOGRAM 2D Routine 07/06/2017 11:00 Results for this COMPLETE W MMODE AM PROGRAM THERAPIST procedure are in SPECTRAL COLOR DOPPLER the results (56293) section. CV STRESS TEST NUCLEAR Routine 07/06/2017 8:53 Results for this CARDIO AM PROGRAM THERAPIST procedure are in the results section. after 11/20/2016 Results Estimated GFR (07/20/2017 12:25 PM)Only the [...] and Americans. Specimen Performing Laboratory Plasma specimen [facility] DEPARTMENT OF PATHOLOGY AND [facility] [address] [place] [address] CBC with platelet and differential (07/20/2017 12:25 [...] (promyelocytes, myelocytes, metamyelocytes) Specimen Performing Laboratory Blood [facility] DEPARTMENT OF PATHOLOGY AND [facility] [address] [place] [address]156 B natriuretic peptide (07/20/2017 12:25 PM)Only the most recent of2 resultswithin the time period is included. Component Value Ref Range BNP 129 (H) 0 - 100 pg/mL Specimen Performing Laboratory Blood [facility] DEPARTMENT OF PATHOLOGY AND GENOMIC MEDICINE [address] [place] [address] 17768 Basic metabolic panel (07/20/2017 12:25 PM)Only the [...] 10.2 mg/dL Specimen Performing Laboratory Plasma specimen [facility] DEPARTMENT OF PATHOLOGY AND GENOMIC MEDICINE [address] [place] [address] 78050 POC glucose (07/09/2017 1:08 PM)Only the most recent of14 resultswithin the time period is included. Component Value Ref Range POC glucose 296 (H) 65 - 99 mg/dL Comment: [facility] Notified RN Meter ID: [id number] Tool Engine Lathe Set Up Operator: Andrew Lyman Specimen Performing Laboratory [facility] DEPARTMENT OF PATHOLOGY AND GENOMIC MEDICINE [address] [place] [address] FL Esophagram Complete (07/07/2017 4:23 PM) Specimen Performing Laboratory [facility] [address] [place] [address] 239[address] Narrative EXAMINATION:FL ESOPHAGRAM COMPLETE CLINICAL HISTORY:GERD COMPARISON:None. [...] esophageal emptying. No evidence of gastroesophageal reflux. [id number] Procedure Note [facility], Radiology Results Incoming - 07/07/2017 5:56 PM PROGRAM THERAPIST EXAMINATION: FL ESOPHAGRAM COMPLETE CLINICAL HISTORY: GERD [...] esophageal emptying. No evidence of gastroesophageal reflux. [id number] SS-B antibody (07/06/2017 4:50 PM) Component Value Ref Range Sjogren's SS-B antibody <0.2 0.0 - 0.9 AI Comment: SS-B is less sensitive than SS-A for Sjogren's syndrome, but is more specific and is useful in distinguishing SLE from Sjogren's. SS-A should beordered separately if clinically warranted. Specimen Performing Laboratory Serum [facility] DEPARTMENT OF PATHOLOGY AND [facility] [address] [place] [address]463 SS-A antibody (07/06/2017 4:50 PM) Component Value Ref Range Sjogren's SS-A antibody <0.2 0.0 - 0.9 AI Comment: SS-A is sensitive for Sjogren's syndrome, but may also be positive with SLE(up to 30% of SLE patients are positive for SS-A). SS-B is less sensitive, but is useful in distinguishing SLE from Sjogren's, and should be ordered if clinically warranted Specimen Performing Laboratory Serum [facility] [address] [address] Hypersensitivity pneumonitis I (07/06/2017 4:50 PM) Component Value Ref Range Aspergillus fumigatus #1 None Detected None-Detected Aspergillus fumigatus #6 None Detected None-Detected Aureobasidium pullulans None Detected None-Detected Comment: Testing includes antibodies directed at Aureobasidium pullulans, Aspergillus fumigatus #1, Aspergillus fumigatus #6, Micropolyspora faeni and Thermoactinomyces vulgaris #1. [place] serum None Detected None-Detected Micropolyspora faeni None Detected None-Detected Thermoactinomyces vulgaris #1 None Detected None-Detected Comment: Performed by [email or web address], [address] [place] [address] [id number] [email or web address], Zane Saavedra MD - Lab. Director Specimen Performing Laboratory Serum [employer] [address] [address] Anti-neutrophilic cytoplasmic Abs panel (07/06/2017 4:50 PM) Component Value Ref Range ANCA screen Negative Negative Specimen Performing Laboratory Blood [facility] AND [address] [address] Rheumatoid factor (07/06/2017 4:50 PM) Component Value Ref Range Rheumatoid factor 18 (H) 0 - 13 IU/mL Specimen Performing Laboratory Plasma specimen [facility] [address] [address] C-reactive protein (07/06/2017 4:50 PM) Component Value Ref Range CRP <0.30 0.00 - 0.50 mg/dL Specimen Performing Laboratory Plasma specimen [facility] DEPARTMENT PATHOLOGY [address] [address] JOHNATHON (07/06/2017 4:50 PM) Component Value Ref Range JOHNATHON screen Not Detected <1:80 Specimen Performing Laboratory Blood [facility] [address] [address] Folate level (07/06/2017 1:23 PM) Component Value Ref Range Folate >20.0 4.8 - 24.2 ng/mL Specimen Performing Laboratory Serum [facility] [place] [address] Vitamin B12 level (07/06/2017 1:23 PM) Component Value Ref Range Vitamin B12 1,256 (H) 211 - 946 pg/mL Comment: Significant overlap exists between normal and deficiency states. However, most patients with deficiencies will have Serum B12 <200 pg/mL. Specimen Performing Laboratory Serum [facility] [place] [address] Echocardiogram complete w contrast and 3D if needed (07/06/2017 11:00 AM) Specimen Performing Laboratory [facility] [address] [place] [address] Narrative Echocardiography Report [address] [place] [address] Pat.Name:PETER DIEGO Pat.ID:[id number] .Date: 07/06/2017 Refer.MD:KRISTIE ALMENDAREZ MD Exam Time: 10:04:00 AM Study Type:Routine Echo Height:59inWeight:169lb BSA: 1.72 m2 DOBAge:1940,76Y Sex: FEMALEBP:94/54 HR:78 bpmSonogrphr: TEMITOPE Manzanares Pat. Stat.:Inpatient Room:[facility] Study Status:Final Echo Event ID:[id number] Order ID:[id number] Reason for Study:Heart Failure; HF - Initial [...] RAPof 5 mmHg. MEASUREMENTS: 2D Parasternal Long [place] Ao An1.8 cmLVPWd1.1 cm LVOT 1.8 cmLA Ds4.1 cm LVIDd5.1 cmIndex 3 cm/m Ao Rtd 3.2 cm Index1.9 cm/m LVIDs2.6 cmLV Vgfx120.6 g(87-129) LV%fs 48.8 % LVM Index 125.3 g/m2 IVSd 1.1 cmRWT0.5 LA Sng Plane LA Area 20 cm2(8.8-23.4) LA Vol 55.2 ml Index32.1 ml/m LA LngAx 6.4 cm RA Sng Plane RA Area 23.5 cm2(8.3-19.5) RA Vol77.2 ml Index44.9 ml/m RA LngAx 5.8 cm DOPPLER LVOT Stroke Vol LVOT 1.8 cmLVOT CO3.7 l/min LVOT TVI21.3 cmLVOT CI2.1 l/m/m2 LVOT Tm291 cwyyFL28 bpm LVOT SV 54.3 ml Signed 07/06/2017 02:19 PM Najma Ambrosio M.D. Procedure Note Interface, Radiology Results In - 07/06/2017 2:20 PM [facility] Echocardiography Report [address] [place] [address] Pat.Name: PETER DIEGO Pat.ID: [id number] .Date: 07/06/2017 Refer.MD: KRISTIE ALMENDAREZ MD Exam Time: 10:04:00 AM Study Type:Routine Echo Height: 59in Weight: 169lb BSA: 1.72 m2 Age: 14 1940,76Y Sex: FEMALE BP: 94/54 HR: 78 bpm Sonogrphr: TEMITOPE Manzanares Pat. Stat.:Inpatient Room: [facility] Study Status:Final Echo Event ID:[id number] Order ID: [id number] Reason for Study:Heart Failure; HF - Initial [...] of 5 mmHg. MEASUREMENTS: 2D Parasternal Long [place] Ao An 1.8 cm LVPWd 1.1 cm [...] report.-Electronically Signed By Alcides OLIVARES, Diandra Pereyra ([id number]), art editor Fahad Sharp ([id number]) on 07/06/2017 11:21:19 AM Specimen Performing Laboratory [facility] MUSE [address] [place] [address] CV myocardial perfusion (07/06/2017 8:53 AM) Specimen Performing Laboratory [facility] [address] [place] [address] Narrative Nuclear Cardiology and Cardiac CT [address] [place] [address] Myocardial Perfusion Imaging Report Stress ECG tracings are available in MUSE, EPIC and CV Web All ECG interpretations are included in this report Pat.Name:PETER DIEGO Pat.ID:[id number] St.Date: 07/06/2017 Refer.MD:ZEINAB CARABALLO MD Exam Time: 8:33:00 AM Study Type:Myocardial Perfusion Imaging Height:59inWeight:169lb BSA: 1.72 m2 DOBAge:1940,76Y Sex: FEMALEBP:106/74 HR:60 bpmHCT: 39.7 % Nuclear Tech:GIFTY Rios, ARRT/ GIFTY Suarez Pat. Stat.:Outpatient Room:[facility] Event ID:[id number] Order ID:[id number] Reason for Study:Chest pain, unspecified* History / [...] Radiology Results In - 07/06/2017 2:11 PM PROGRAM THERAPIST Nuclear Cardiology and Cardiac CT [address] [place] [address] Myocardial Perfusion Imaging Report Stress ECG tracings are available in [employer], [employer] and [email or web address] All ECG interpretations are included in this report Pat.Name: PETER DIEGO Pat.ID: [id number] St.Date: 07/06/2017 Refer.MD: ZEINAB CARABALLO MD Exam Time: 8:33:00 AM Study Type:Myocardial Perfusion Imaging Height: 59in Weight: 169lb BSA: 1.72 m2 Age: 14 1940,76Y Sex: FEMALE BP: 106/74 HR: 60 bpm HCT: 39.7 % Nuclear Tech:GIFTY Rios, ARRT/ GIFTY Suarez Pat. Stat.:Outpatient Room: J810 Nuclear Event ID:[id number] Order ID: [id number] Reason for Study:Chest pain, unspecified* History / [...] crystals, UA Few Specimen Performing Laboratory Urine [facility] DEPARTMENT OF PATHOLOGY AND GENOMIC MEDICINE [address] [place] [address] Gram stain (07/06/2017 5:40 AM) Component Value Ref Range Gram stain result No WBC's or organisms seen. Comment: Specimen Information Specimen Source: Urine Specimen Site: Catheterized Specimen Performing Laboratory Urine - Catheterized [facility] DEPARTMENT OF PATHOLOGY AND [facility] [address] [place] [address] Urine culture (07/06/2017 5:40 AM) Component Value Ref Range Urine culture isolate Gram negative rods 10-1 cfu/ml (A) Comment: Specimen Information Specimen Source: Urine Specimen Site: Catheterized Urine culture isolate Mixed Gram positive uvaldo 10-3 cfu/ml (A) Specimen Performing Laboratory Urine - Catheterized [facility] DEPARTMENT OF PATHOLOGY AND [facility] [address] [place] [address] Troponin (07/06/2017 4:21 AM)Only the most recent [...] myocardial injury. Specimen Performing Laboratory Plasma specimen [facility] DEPARTMENT OF PATHOLOGY AND GENOMIC MEDICINE [address] [place] [address] Manual differential (07/06/2017 4:21 AM) Component Value [...] Enlarged platelets Moderate (A) Specimen Performing Laboratory [facility] DEPARTMENT OF PATHOLOGY AND GENOMIC MEDICINE [address] [place] [address] Thyroid stimulating hormone (07/06/2017 4:21 AM) Component Value Ref Range TSH 3.85 0.27 - 4.20 uIU/mL Specimen Performing Laboratory Plasma specimen [facility] DEPARTMENT OF PATHOLOGY AND GENOMIC MEDICINE [address] [place] [address] Magnesium level (07/06/2017 4:21 AM) Component Value Ref Range Magnesium 1.8 1.6 - 2.4 mg/dL Specimen Performing Laboratory Plasma specimen [facility] DEPARTMENT OF PATHOLOGY AND GENOMIC [address] [address] Hemoglobin A1c (07/06/2017 4:21 AM) Component Value [...] type 1 diabetes. Specimen Performing Laboratory Blood [facility] DEPARTMENT OF PATHOLOGY AND [facility] [address] [place] [address] Lipid panel (07/06/2017 4:21 AM) Component Value Ref Range Cholesterol 93 <200 mg/dL Triglycerides 120 <150 mg/dL HDL cholesterol 34 (L) >40 mg/dL LDL cholesterol 40Comment: Result obtained by direct LDL <100 mg/dL measurement Lipid panel interpretation SeeBelow Comment: Total Cholesterol (mg/dL) <200 Desirable [id number]-bykx >=240High Triglycerides (mg/dL) <150 Normal [phone]-alzm 200-499High >=500Very high HDL Cholesterol (mg/dL) <40Low (male) <40Low (female) LDL Cholesterol (mg/dL) <100 Optimal 100-129Near or above optimal [phone]-njni 160-189High >=190Very high Risk Catergories that modify [...] (>=200 mg/dL) Specimen Performing Laboratory Plasma specimen [facility] DEPARTMENT OF PATHOLOGY AND [address] [address] Respiratory pathogen panel (07/06/2017 4:18 AM) Component [...] Left Specimen Performing Laboratory Nares - Left [facility] DEPARTMENT OF PATHOLOGY AND GENOMIC MEDICINE [address] [place] [address] ECG 12 lead (07/06/2017 4:00 AM)Only the most recent of2 resultswithin the time period is included. Component Value Ref Range Ventricular rate 62 Atrial rate 62 NV interval 158 QRSD interval 78 QT interval 346 QTC interval 351 P axis 1 25 QRS axis 1 145 T wave axis -21 EKG impression Normal sinus rhythm-Right axis deviation-Anterior infarct , age undetermined-ST & T wave abnormality, consider lateral ischemia- Abnormal ECG-In automated comparison with ECG of 05-JUL-2017 16:07,-Si gnificant changes have occurred- Specimen Performing Laboratory [facility] MUSE [address] [place] [address] CT Angiogram Pe Chest (07/05/2017 7:23 PM) Specimen Performing Laboratory [facility] [address] [place] [address] ANGIOGRAM PE CHEST CLINICAL INDICATION: [...] hepatic veins, suggesting elevated right heart pressures. [id number] Procedure Note Hm Interface, Radiology Results Incoming - 07/05/2017 7:[address] ANGIOGRAM PE CHEST CLINICAL INDICATION: chest [...] hepatic veins, suggesting elevated right heart pressures. [id number] XR Chest 1 Vw Portable (07/05/2017 4:51 PM) Specimen Performing Laboratory [facility] [address] [place] [address] Narrative EXAMINATION:XR CHEST 1 VW PORTABLE CLINICAL HISTORY:Chest Pain COMPARISON:None. IMPRESSION: The heart is enlarged Patchy infiltrates in lungs bilaterally could be secondary to mild pulmonary vascular congestion or a infectious/plantar process Degenerative changes are present throughout the bony structures without evidence of a suspicious focal lesion. Diffuse calcified atherosclerotic vascular disease throughout the arterial structures. Small bilateral pleural effusions [id number] Procedure Note Interface, Radiology Results Incoming - 07/05/2017 5:00 PM PROGRAM THERAPIST EXAMINATION: XR CHEST 1 VW PORTABLE CLINICAL HISTORY: Chest Pain COMPARISON: None. IMPRESSION: The heart is enlarged Patchy infiltrates in lungs bilaterally could be secondary to mild pulmonary vascular congestion or a infectious/plantar process Degenerative changes are present throughout the bony structures without evidence of a suspicious focal lesion. Diffuse calcified atherosclerotic vascular disease throughout the arterial structures. Small bilateral pleural effusions [id number] Prothrombin time with INR (07/05/2017 4:44 PM) Component Value Ref Range Prothrombin time 19.6 (H) 12.0 - 15.0 sec INR 1.6 Comment: The International Normalized Ratio (INR) is a therapeutic monitoring tool for patients who are stable on oral anticoagulant therapy. An INR of 2.0-3.0 is suggested for deep vein thrombosis/pulmonary embolism. Specimen Performing Laboratory Blood [facility] DEPARTMENT OF PATHOLOGY AND GENOMIC MEDICINE [address] [place] [address] Creatine kinase, total (CPK) (07/05/2017 4:44 PM) Component Value Ref Range Creatine kinase 23 (L) 26 - 192 U/L Specimen Performing Laboratory Plasma specimen [facility] DEPARTMENT OF PATHOLOGY AND GENOMIC MEDICINE [address] [place] [address] Comprehensive metabolic panel (07/05/2017 4:44 PM) Component [...] Protein 6.3 6.3 - 8.3 g/dL Comment: [place] 4.6-7.0 g/dL 1 week 4.4-7.6 g/dL 7 months-1year5.1-7.3 g/dL 1-2 years5.6-7.5 g/dL >3 years6.0-8.0 g/dL 18-150 6.3-8.3 g/dL Albumin 2.8 (L) 3.5 - 5.0 g/dL A/G ratio 0.8 0.7 - 3.8 Alkaline phosphatase 75 35 - 104 U/L AST 29 10 - 35 U/L ALT 31 5 - 50 U/L Total bilirubin 0.4 0.0 - 1.2 mg/dL Specimen Performing Laboratory Plasma specimen [facility] DEPARTMENT OF PATHOLOGY AND GENOMIC MEDICINE [address] [place] [address] after 11/20/2016 Insurance Payer Benefit Plan / Group Subscriber ID Type Phone Address [employer] MED[employer] xxxxxxxxx O [phone] [facility] [address] [place] [address]
[2017-11-21] MEDS ORDERED: FUROSEMIDE 20 MG/ 2ML VIAL ONE (00:44)
[2017-11-21 00:50] LABS: Arterial Blood Carboxyhemoglob 1.6 % (0-1.5); Blood Gas Oxyhemoglobin 95.2 % (94-97); Blood O2 Saturation 97.3 % (92-98.5)
[2017-11-21] MEDS ORDERED: Levofloxacin500mg IV 500 MG/100 ML BAG IV ONE (01:54)
[2017-11-21 02:07] LABS: Absolute Lymphocytes (CBC) 1.8 K/uL (0.7-4.9); Absolute Monocytes 0.7 K/uL (0.1-1.3); Absolute Neutrophil 7.9 K/uL (1.8-8.0); Basophils % 0.7 % (0-1.3); Eosinophils % 2.6 % (0-4.4); Lymphocytes % 16.6 % (15.3-44.8); MCH 32.8 pg (27.0-35.0); MCV 101.1 fL (80-100); MPV 8.7 fL (7.6-11.3); Monocytes % 6.5 % (3.3-12.3); RBC Red Blood Cell Count 4.25 M/uL (3.86-4.86)
[2017-11-21 02:09] LABS: Protime INR 0.96
[2017-11-21 02:19] LABS: Potassium 3.6 mEq/L (3.6-5.0)
--- NOTE | 2017-11-21 02:24 | EDPHYS ---
Physician Documentation [facility] Name: Peter Diego Age: 77 yrs Sex: Female : 1940 Arrival Date: 11/21/2017 Time: 00:32 Bed 4 Private MD: ED Physician Jaime Hanna HPI: 11/21 00:41 This 77 yrs old Female presents to ER via Unassigned with complaints of kdr Breathing Difficulty. 00:41 The patient has shortness of breath at rest, with light activity. Onset: The kdr symptoms/episode began/occurred acutely, suddenly, gradually, The patient has has increased swelling for the last week but no SOB until tonight when she became acutely SOB tonight. She has had this problem before. Her daughter states that she has been worse before when admitted several weeks ago.. Duration: The symptoms are continuous, and are steadily getting worse. The patient's shortness of breath is aggravated by coughing, exertion, light activity, is alleviated by nothing. Associated signs and symptoms: Pertinent positives:. Severity of symptoms: At their worst the symptoms were moderate just prior to arrival, in the emergency department the symptoms are worse. The patient has experienced similar episodes in the past, a few times. The patient has been recently seen by a physician: Dr. Dwyer Was started on Amoxicillin this week - unknown why. Historical: - Allergies: 01:04 Tramadol HCl; fc 01:04 PENICILLINS; fc 01:04 hydrocodone; fc - Home Meds: 01:04 Lasix 40 mg Oral tab 1 tab once daily [Active]; gabapentin 300 mg oral cap 1 cap 3 fc times per day [Active]; metformin 500 mg Oral tab 2 tabs 2 times per day [Active]; oxybutynin chloride 5 mg oral tab 1 tab daily [Active]; pravastatin 20 mg oral tab 1 tab once daily [Active]; raloxifene 60 mg oral tab 1 tab once daily [Active]; Spiriva with HandiHaler 18 mcg inhalation CpDv 1 cap once daily [Active]; Victoza 3-Augie 0.6 mg/0.1 mL (18 mg/3 mL) subcutaneous pnij 0.2 mL once daily [Active]; - PMHx: 01:04 COPD; Diabetes - NIDDM; CHF; Hyperlipidemia; Severe pulmonary hypertension; pulmonary fc fibrosis; cardiomegaly; bowel obstruction; Pneumonia; - PSHx: 01:04 ; Hernia repair; Knee surgery; fc - Immunization history:: Last tetanus immunization: unknown. - Social history:: Smoking status: Patient/guardian denies using tobacco. ROS: 02:19 Constitutional: Negative for fever, chills, and weight loss, Eyes: Negative for injury, kdr pain, redness, and discharge, ENT: Negative for injury, pain, and discharge, Neck: Negative for injury, pain, and swelling, Cardiovascular: Negative for chest pain, palpitations, and edema, Abdomen/GI: Negative for abdominal pain, nausea, vomiting, diarrhea, and constipation, Back: Negative for injury and pain, : Negative for injury, bleeding, discharge, and swelling, Skin: Negative for injury, rash, and discoloration, Neuro: Negative for headache, weakness, numbness, tingling, and seizure activity. Psych: Negative for depression, anxiety, suicide ideation, homicidal ideation, and hallucinations, Allergy/Immunology: Negative for hives, rash, and allergies, Endocrine: Negative for neck swelling, polydipsia, polyuria, polyphagia, and marked weight changes, Hematologic/Lymphatic: Negative for swollen nodes, abnormal bleeding, and unusual bruising. 02:19 Respiratory: Positive for cough, with no reported sputum, dyspnea on exertion, shortness of breath, at rest. Negative for hemoptysis, orthopnea, pleurisy. 02:19 MS/extremity: Positive for swelling. Exam: 02:19 Constitutional: This is a well developed, well nourished patient who is awake, alert, kdr and in moderate distress. Head/Face: Normocephalic, atraumatic. Eyes: Pupils equal round and reactive to light, extra-ocular motions intact. Lids and lashes normal. Conjunctiva and sclera are non-icteric and not injected. Cornea within normal limits. Periorbital areas with no swelling, redness, or edema. Neck: Trachea midline, no thyromegaly or masses palpated, and no cervical lymphadenopathy. Supple, full range of motion without nuchal rigidity, or vertebral point tenderness. No Meningismus. Chest/axilla: Normal chest wall appearance and motion. Nontender with no deformity. No lesions are appreciated. Cardiovascular: Regular rate and rhythm with a normal S1 and S2. No gallops, murmurs, or rubs. Normal PMI, no JVD. No pulse deficits. Abdomen/GI: Soft, non-tender, with normal bowel sounds. No distension or tympany. No guarding or rebound. No evidence of tenderness throughout. Back: No spinal tenderness. No costovertebral tenderness. Full range of motion. Skin: Warm, dry with normal turgor. Normal color with no rashes, no lesions, and no evidence of cellulitis. MS/ Extremity: Pulses equal, no cyanosis. Neurovascular intact. Full, normal range of motion. Neuro: Awake and alert, GCS 15, oriented to person, place, time, and situation. Cranial nerves II-XII grossly intact. Motor strength 5/5 in all extremities. Sensory grossly intact. Cerebellar exam normal. Normal gait. Psych: Awake, alert, with orientation to person, place and time. Behavior, mood, and affect are within normal limits. 02:19 Respiratory: moderate respiratory distress is noted, Respirations: labored breathing, that is moderate, shallow respirations, that is mild, Breath sounds: rales, that are mild, are scattered, Respiratory rate: 28 Vital Signs: 00:33 BP 117 / 91; Pulse 102; Resp 32; Pulse Ox 87% on CPAP; Weight 106.59 kg (M); Height 5 fc ft. 2 in. (157.48 cm); Pain 4/10; 00:35 Pulse 95; Resp 34; Pulse Ox 100% on 100% BiPAP; fc 01:53 BP 117 / 80; Pulse 89; Resp 28; Pulse Ox 95% on BiPAP; ea 02:51 BP 103 / 66; Pulse 89; Resp 23 S; Pulse Ox 95% on 5 lpm NC; ea 00:33 Body Mass Index 42.98 (106.59 kg, 157.48 cm) fc MDM: 02:22 Patient medically screened. kdr 02:23 Data reviewed: vital signs, nurses notes, lab test result(s), EKG, radiologic studies. kdr Counseling: I had a detailed discussion with the patient and/or guardian regarding: the historical points, exam findings, and any diagnostic results supporting the discharge/admit diagnosis, lab results, radiology results, the need for further work-up and treatment in the hospital. 11/21 00:40 Order name: Basic Metabolic Panel; Complete Time: 02:33 kdr 11/21 00:40 Order name: BNP; Complete Time: 02:33 kdr 11/21 00:40 Order name: CBC with Diff; Complete Time: 02:24 kdr 11/21 00:40 Order name: LFT's; Complete Time: 02:33 kdr 11/21 00:40 Order name: Magnesium; Complete Time: 02:33 kdr 11/21 00:40 Order name: PT-INR; Complete Time: 02:24 kdr 11/21 00:40 Order name: Ptt, Activated; Complete Time: 02:24 kdr 11/21 00:40 Order name: Troponin (emerg Dept Use Only); Complete Time: 02:24 kdr 11/21 00:40 Order name: ABG; Complete Time: 01:39 kdr 11/21 01:31 Order name: Urine Dipstick--Ancillary (enter results); Complete Time: 02:33 rg2 11/21 01:47 Order name: Blood Culture Adult (2) bb 11/21 02:40 Order name: Basic Metabolic Panel EDMS 11/21 02:40 Order name: Basic Metabolic Panel EDRI 11/21 02:40 Order name: BNP B-Type Natriuretic Peptide EDRI 11/21 00:40 Order name: XRAY Chest (1 view) kdr 11/21 00:40 Order name: EKG; Complete Time: 00:41 kdr 11/21 00:41 Order name: BIPAP kdr 11/21 02:40 Order name: Carb Control (ADA) 1800 [address] EDMS 11/21 02:40 Order name: BNP B-Type Natriuretic Peptide EDMS 11/21 02:40 Order name: CBC with Automated Diff EDMS 11/21 02:40 Order name: CBC with Automated Diff EDMS 11/21 02:40 Order name: Chest Single View EDMS 11/21 02:40 Order name: Chest Single View EDMS 11/21 02:40 Order name: Troponin I EDMS 11/21 02:40 Order name: Troponin I EDMS 11/21 02:40 Order name: Troponin I EDMS 11/21 00:40 Order name: Cardiac monitoring; Complete Time: 00:49 kdr 11/21 00:40 Order name: EKG - Nurse/Tech; Complete Time: 00:49 kdr 11/21 00:40 Order name: IV Saline Lock; Complete Time: 00:49 kdr 11/21 00:40 Order name: Labs collected and sent; Complete Time: 00:49 kdr 11/21 00:40 Order name: O2 Per Protocol; Complete Time: 00:49 kdr 11/21 00:40 Order name: O2 Sat Monitoring; Complete Time: 00:50 kdr 11/21 00:40 Order name: Urine Dipstick-Ancillary (obtain specimen); Complete Time: 01:30 kdr Administered Medications: 00:50 CANCELLED (Physician Discretion): LaSIX 20 mg PO once ea 00:50 Drug: Lasix 40 mg Route: IVP; Site: right antecubital; ea 01:30 Follow up: Response: No adverse reaction; Marked relief of symptoms ea 02:06 Drug: LevaQUIN 500 mg Volume: 100 ml; Route: IVPB; Infused Over: 60 mins; Site: right ea antecubital; 03:10 Follow up: Response: No adverse reaction; IV Status: Completed infusion; IV Intake: ea 100ml 03:53 Drug: Magnesium Sulfate 1 grams Route: IVPB; Infused Over: 1 hrs; Site: right bb antecubital; 03:54 Follow up: IV Status: Infusion continued upon admission bb Disposition: 11/21/17 02:22 Hospitalization ordered by Jorge Dwyer for Inpatient Admission. Preliminary diagnosis is COPD Exacerbation. - Bed requested for Telemetry/MedSurg (Inpatient). - Status is Inpatient Admission. ea - Condition is Fair. - Problem is an acute exacerbation. - Symptoms have improved. UTI on Admission? No Signatures: Dispatcher [employer] EDMS Tali Lantigua RN RN kl Rittger, Kevin, MD MD kdr Chretien, Felicia, RN RN fc Ballard, Brenda, RN RN bb Antunez, Elena, RN RN ea Corrections: (The following items were deleted from the chart) 00:50 00:40 LaSIX 20 mg PO once ordered. kdr ea 00:50 00:48 LaSIX 20 mg PO once given. ea ea 00:50 00:49 LaSIX 20 mg PO once ordered. ea ea
--- NOTE | 2017-11-21 02:24 | ER ---
Nurse's Notes [facility] Name: Peter Diego Age: 77 yrs Sex: Female : 1940 Arrival Date: 11/21/2017 Time: 00:32 Bed 4 Private MD: Diagnosis: COPD Exacerbation Presentation: 11/21 00:33 Presenting complaint: EMS states: that pt woke up at 0010 with difficulty breathing. fc She called daughter and EMS was called. Upon their arrival pt was on her home CPAP with sats of 78%. Pt is on Amoxicillin that was started this week by Dr Dwyer. Transition of care: patient was not received from another setting of care. Onset of symptoms was November 21, 2017 at 00:10. Initial Sepsis Screen: Does the patient meet any 2 criteria? RR > 20 per min. HR > 90 bpm. Yes Does the patient have a suspected source of infection? Yes: Productive cough/pneumonia. Care prior to arrival: CPAP. 00:33 Method Of Arrival: EMS: [facility] 00:33 Acuity: ALEJANDRA 2 fc Triage Assessment: 03:46 Respiratory: bb 03:48 Respiratory: Onset: The symptoms/episode began/occurred just prior to arrival. bb Historical: - Allergies: 01:04 Tramadol HCl; fc 01:04 PENICILLINS; fc 01:04 hydrocodone; fc - Home Meds: 01:04 Lasix 40 mg Oral tab 1 tab once daily [Active]; gabapentin 300 mg oral cap 1 cap 3 fc times per day [Active]; metformin 500 mg Oral tab 2 tabs 2 times per day [Active]; oxybutynin chloride 5 mg oral tab 1 tab daily [Active]; pravastatin 20 mg oral tab 1 tab once daily [Active]; raloxifene 60 mg oral tab 1 tab once daily [Active]; Spiriva with HandiHaler 18 mcg inhalation CpDv 1 cap once daily [Active]; Victoza 3-Augie 0.6 mg/0.1 mL (18 mg/3 mL) subcutaneous pnij 0.2 mL once daily [Active]; - PMHx: 01:04 COPD; Diabetes - NIDDM; CHF; Hyperlipidemia; Severe pulmonary hypertension; pulmonary fc fibrosis; cardiomegaly; bowel obstruction; Pneumonia; - PSHx: 01:04 ; Hernia repair; Knee surgery; fc - Immunization history:: Last tetanus immunization: unknown. - Social history:: Smoking status: Patient/guardian denies using tobacco. Screenin:53 Abuse screen: Denies threats or abuse. Nutritional screening: No deficits noted. fc Tuberculosis screening: No symptoms or risk factors identified. 03:19 Fall Risk IV access (20 points). ea Assessment: 00:44 Cardiovascular: Rhythm is sinus rhythm with unifocal PVCs. bb 00:45 General: Appears distressed, Behavior is cooperative, restless. Pain: Complains of pain ea in base of the skull Pain currently is 6 out of 10 on a pain scale. Neuro: Level of Consciousness is awake, alert, obeys commands, Oriented to person, place, time, situation. Cardiovascular: Heart tones S1 S2 present Patient's skin is warm and dry. Cardiovascular: Edema is 3+ to left ankle, left foot, right ankle and right foot pitting to left foot, left toes, right foot and right toes. Respiratory: Airway is patent Respiratory effort is even, labored, Respiratory pattern is tachypnea Breath sounds with crackles bilaterally. in left posterior lower lobe, right posterior middle lobe and right posterior lower lobe. GI: Abdomen is round Reports hernia. : No signs and/or symptoms were reported regarding the genitourinary system. EENT: No signs and/or symptoms were reported regarding the EENT system. Derm: Skin is diaphoretic, Skin is color is normal Skin temperature is warm. 01:50 Reassessment: Pt remains on BiPAP O2 sat at 98% RR:22, tolerating well. Reports she is ea brething better, denies pain or discomfort at this time. Daughter remains at bedside. 02:29 Reassessment: Patient and/or family updated on plan of care and expected duration. Pain ea level reassessed. Pt remains on BiPAP pt tolerating well, O2 sats at 95%, RR 23 , pt reports she is breathing better. Daughter at bedside. 02:49 Reassessment: RT at bedside, pt titrated of BiPAP, O2 at 5 L per n/c, pt tolerating ea well. O2 at 96% RR 22. 03:52 Reassessment: Patient and/or family updated on plan of care and expected duration. Pain ea level reassessed. Patient is alert, oriented x 3, equal unlabored respirations, skin warm/dry/pink. Daughter at bedside. Report given to receiving nurse. Patient states feeling better. Patient states symptoms have improved. Vital Signs: 00:33 BP 117 / 91; Pulse 102; Resp 32; Pulse Ox 87% on CPAP; Weight 106.59 kg (M); Height 5 fc ft. 2 in. (157.48 cm); Pain 4/10; 00:35 Pulse 95; Resp 34; Pulse Ox 100% on 100% BiPAP; fc 01:53 BP 117 / 80; Pulse 89; Resp 28; Pulse Ox 95% on BiPAP; ea 02:51 BP 103 / 66; Pulse 89; Resp 23 S; Pulse Ox 95% on 5 lpm NC; ea 00:33 Body Mass Index 42.98 (106.59 kg, 157.48 cm) fc ED Course: 00:32 Patient arrived in ED. ds1 00:33 Arm band placed on right wrist. Patient placed in an exam room, on a stretcher, on fc oxygen, on interior decorator painting, on pulse oximetry. 00:34 Jaime Hanna MD is Attending Physician. rg2 00:34 O2 via Bipap at 100% FIO2, I - 12, E - 6, Rate 14. fc 00:36 Inserted saline lock: 20 gauge in right antecubital area, using aseptic technique. fc Blood collected. 00:45 Triage completed. fc 00:45 Patient has correct armband on for positive identification. Placed in gown. Bed in low ea position. Call light in reach. Side rails up X2. 00:51 X-ray completed. Portable x-ray completed in exam room. Patient tolerated procedure kw well. 00:51 O2 via Bipap decreased to FIO2 of 60%. fc 00:53 XRAY Chest (1 view) In Process Unspecified. EDMS 01:38 Sachi Molina RN is Primary Nurse. ea 02:22 Jorge Dwyer MD is Hospitalizing Provider. kdr 02:51 No provider procedures requiring assistance completed. Patient admitted, IV remains in ea place. Administered Medications: 00:50 CANCELLED (Physician Discretion): LaSIX 20 mg PO once ea 00:50 Drug: Lasix 40 mg Route: IVP; Site: right antecubital; ea 01:30 Follow up: Response: No adverse reaction; Marked relief of symptoms ea 02:06 Drug: LevaQUIN 500 mg Volume: 100 ml; Route: IVPB; Infused Over: 60 mins; Site: right ea antecubital; 03:10 Follow up: Response: No adverse reaction; IV Status: Completed infusion; IV Intake: ea 100ml 03:53 Drug: Magnesium Sulfate 1 grams Route: IVPB; Infused Over: 1 hrs; Site: right bb antecubital; 03:54 Follow up: IV Status: Infusion continued upon admission bb Intake: 03:10 IV: 100ml; Total: 100ml. ea Outcome: 02:22 Decision to Hospitalize by Provider. kdr 03:00 Instructed on the need for admit. ea 03:48 Admitted to Tele accompanied by tech, via stretcher, room 420, with chart, Report bb called to Daria RN 03:48 Condition: stable 03:55 Patient left the ED. ea Signatures: Dispatcher [employer] EDMS Eran Botello rg2 Jaime Hanna MD MD kdr Chretien, Felicia, RN RN Ynes Chang dsFloresita Joel RN RN bb Whitley, Kimberlee kw Antunez, Elena, RN RN ea Corrections: (The following items were deleted from the chart) 00:49 00:47 LaSIX 20 mg PO ea ea 00:52 00:34 O2 via Bipap at 100% fc fc 00:52 00:51 O2 via Bipap at 60% fc fc 02:10 00:45 Respiratory: Airway is patent Respiratory effort is even, labored, Respiratory ea pattern is tachypnea Breath sounds are clear bilaterally. ea 02:10 00:45 GI: Abdomen is ea ea 02:10 00:45 : ea ea 02:10 00:45 Derm: Skin is diaphoretic, Skin is normal, Skin temperature is warm ea ea
[2017-11-21 02:25] LABS: Albumin 3.9 g/dL (3.2-5.5); Bilirubin Direct 0.1 mg/dL (0-0.2); Bilirubin Total 0.5 mg/dL (0.3-1.2); Magnesium 1.6 mg/dL (1.8-2.5); Protein, Total 7.5 g/dL (6.0-8.3)
[2017-11-21 02:31] LABS: Urine Blood NEGATIVE (NEG); Urine Glucose TRACE (NEG); Urine Protein NEGATIVE (NEG)
[2017-11-21] MEDS ORDERED: IPRATROPIUM BROM 0.5MG/2.5ML NEB PRN (02:37)
[2017-11-21] MEDS ORDERED: ALBUTEROL 2.5 MG/3 ML NEB SOL NEB PRN (02:37)
[2017-11-21] MEDS: Levofloxacin500mg IV 500 MG/100 ML BAG IV SCH (03:00)
[2017-11-21] MEDS ORDERED: MAGNESIUM SULFATE 1 gm IVPB 1 GM/100 ML BAG IV ONE (03:51)
[2017-11-21 05:00] LABS: Urine Appearance CLEAR; Urine Bilirubin NEGATIVE (NEG); Urine Blood NEGATIVE (NEG); Urine Color YELLOW; Urine Glucose NEGATIVE (NEG); Urine Protein NEGATIVE (NEG); Urine Urobilinogen 0.2 mg/dL (0.2-1.0)
[2017-11-21 05:16] LABS: Urine Microscopic Reflex NO UMIC
--- NOTE | 2017-11-21 07:11 | RAD REPORT ---
EXAM DESCRIPTION: RAD - Chest Single View - 11/21/2017 12:54 am CLINICAL HISTORY: Dyspnea COMPARISON: October 29 TECHNIQUE: AP portable chest image was obtained 0043 hours . FINDINGS: Patient has a baseline of interstitial fibrotic lung disease. Cardiomegaly is present kurt lar to the prior study. Trachea is midline. Perihilar markings are diffusely prominent. No pneumothor ax or large pleural effusion. No gross bony abnormality seen. No acute aortic findings suspected. IMPRESSION: Moderate CHF/volume overload pattern superimposed on chronic interstitial lung disease. Pattern is similar to the October 29 study.
[2017-11-21] MEDS ORDERED: LIRAGLUTIDE SQ SCH (08:00)
[2017-11-21] MEDS: OXYBUTYNIN CHLORIDE 5 MG TAB PO SCH (08:40)
[2017-11-21] MEDS: GABAPENTIN 300 MG CAP PO SCH ×3 (08:40→21:43)
[2017-11-21] MEDS ORDERED: MORPHINE SULF 10 MG/5 ML OSYR PO PRN (08:41)
--- NOTE | 2017-11-21 08:45 | P.CNS ---
Date of Consult: 11/21/17 Chief Complaint: Shortness of breath History of Present Illness: Patient is 77 years of age well known to me with recurrent hospital admissions. History of end-stage pulmonary fibrosis admitted to the hospital with difficulty breathing hypoxemia sats were low. Denies any fever or chills patient is Danish-speaking only Allergies hydrocodone [Hydrocodone] Allergy (Severe, Verified 11/21/17 06:09) Shortness of breath Penicillins Adverse Reaction (Verified 07/03/17 22:52) Unknown tramadol Adverse Reaction (Verified 11/21/17 06:09) Shortness of breath Hydrocodone-Acetamin Allergy (Uncoded 11/21/17 06:10) Unknown Tramadol HCl Allergy (Uncoded 11/21/17 06:10) Unknown Home Medications: Gabapentin [Neurontin*] 300 mg PO TID 11/14/12 Tiotropium [Spiriva Handihaler*] 1 puff IH DAILY 11/03/14 Oxybutynin Chloride 5 mg PO DAILY 11/17/16 Metformin HCl [Glucophage*] 500 mg PO BID 07/02/17 Pravastatin Sodium [Pravachol] 20 mg PO DAILY 07/02/17 Furosemide [Furosemide] 40 mg PO DAILY 10/30/17 Liraglutide [Victoza 2-Augie] 1.2 ml SQ DAILY WITH BREAKFAST 10/30/17 Raloxifene HCl [Raloxifene HCl] 60 mg PO DAILY 10/30/17 - Past Medical/Surgical History Diabetic: Yes -: COPD -: Hyperlipidemia -: htn -: Diabetes -: CHF -: sleep apnea -: dyspnea -: UTI -: Fall -: Chest pain -: Pulmonary Fibrosis -: c section -: hernia repair -: right knee sx -: Left elbow sx - Family History Mother Medical History: GI disease Father Medical History: GI disease, Cancer Notes: stomach cancer Brother Medical History: Kidney disease - Social History Smoking Status: Former smoker Alcohol use: No CD- Drugs: No Caffeine use: Yes Place of Residence: Home Physical Examination Temp Pulse Resp BP Pulse Ox 97.8 F 83 18 119/55 L 92 11/21/17 08:00 11/21/17 08:40 11/21/17 08:00 11/21/17 08:40 11/21/17 08:00 General: Moderate distress HEENT: Atraumatic Neck: Supple Respiratory: Crackles/rales (Extensive bilateral crackles) Cardiovascular: No edema, Normal S1 S2 Laboratory Data (last 24 hrs) 11/21/17 00:36: PT 11.3, INR 0.96, APTT 23.8 L 11/21/17 00:36: WBC 10.7, Hgb 14.0, Hct 43.0, Plt Count 309 11/21/17 00:36: B-Natriuretic Peptide 167 H 11/21/17 00:36: Sodium 140, Potassium 3.6, BUN 19, Creatinine 0.76, Glucose 212 H, Magnesium 1.6 L, Total Bilirubin 0.5, AST 26, ALT 28, Alkaline Phosphatase 76 - Problems (1) Pulmonary fibrosis Onset Date: 07/03/17 Current Visit: No Status: Acute Plan: Patient is 77 years of age with end-stage pulmonary fibrosis recurrent hospital admissions chest x-ray shows again pulmonary fibrosis she has extensive crackles labs reviewed unremarkable doubt sepsis will discuss with the daughter regarding hospice care I have started her on some low-dose morphine for relief of dyspnea patient is intolerant to steroids this causes a significant increase in her blood sugars maria isabel has CPAP
[2017-11-21] MEDS ORDERED: FUROSEMIDE 40 MG TABLET PO SCH (09:00)
--- NOTE | 2017-11-21 11:26 | EKG ---
Test Date: 2017-11-21 Test Time: 00:44:58 Box Folding Machine Operator: BYRON MEASUREMENT RESULTS: Intervals: Rate: 91 ND: 158 QRSD: 80 QT: 368 QTc: 452 [place]: P: 19 ND: 158 QRS: 93 T: 22 INTERPRETIVE STATEMENTS: Sinus rhythm with premature supraventricular complexes Rightward axis Nonspecific ST abnormality Abnormal ECG Compared to ECG 10/29/2017 17:40:46 Right-axis deviation now present ST (T wave) deviation now present Sinus tachycardia no longer present Electronically Signed On 11-21-17 11:23:57 CDT by Wilner Maddox
--- NOTE | 2017-11-21 19:52 | P.HP ---
Certification for Inpatient Patient admitted to: Inpatient With expected LOS: >2 Midnights Practitioner: I am a practitioner with admitting privileges, knowledge of patient current condition, hospital course, and medical plan of care. Services: Services provided to patient in accordance with Admission requirements found in Title 42 Section 412.3 of the Code of Federal Regulations Patient History Date of Service: 11/21/17 Reason for admission: Shortness of breath History of Present Illness: MS. 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 SHE COMES TO ER ALMOST EVERY2 WEEKS NOW. SHE IS INCURABLE. SHE HAS SAME COMPLAINTS OF SEVERE DYSPNEA AND FATIGUE. Allergies hydrocodone [Hydrocodone] Allergy (Severe, Verified 11/21/17 06:09) Shortness of breath Penicillins Adverse Reaction (Verified 07/03/17 22:52) Unknown tramadol Adverse Reaction (Verified 11/21/17 06:09) Shortness of breath Hydrocodone-Acetamin Allergy (Uncoded 11/21/17 06:10) Unknown Tramadol HCl Allergy (Uncoded 11/21/17 06:10) Unknown Home Medications: Gabapentin [Neurontin*] 300 mg PO TID 11/14/12 Tiotropium [Spiriva Handihaler*] 1 puff IH DAILY 11/03/14 Oxybutynin Chloride 5 mg PO DAILY 11/17/16 Metformin HCl [Glucophage*] 500 mg PO BID 07/02/17 Pravastatin Sodium [Pravachol] 20 mg PO DAILY 07/02/17 Furosemide [Furosemide] 40 mg PO DAILY 10/30/17 Liraglutide [Victoza 2-Augie] 1.2 ml SQ DAILY WITH BREAKFAST 10/30/17 Raloxifene HCl [Raloxifene HCl] 60 mg PO DAILY 10/30/17 - Past Medical/Surgical History Has patient received pneumonia vaccine in the past: Yes Diabetic: Yes -: COPD -: Hyperlipidemia -: htn -: Diabetes -: CHF -: sleep apnea -: dyspnea -: UTI -: Fall -: Chest pain -: Pulmonary Fibrosis -: c section -: hernia repair -: right knee sx -: Left elbow sx - Family History Mother -: GI disease Father -: GI disease, Cancer Notes: stomach cancer Brother -: Kidney disease - Social History Smoking Status: Never smoker Alcohol use: No CD- Drugs: No Caffeine use: Yes Place of Residence: Home Review of Systems 10-point ROS is otherwise unremarkable General: Weakness, Malaise Respiratory: Cough, Shortness of Breath, Other (AT REST, SITTING UP) Physical Examination - Vital Signs Temperature: 97.6 F Blood Pressure: 101/61 Pulse: 94 Respirations: 20 Pulse Ox (%): 95 - Physical Exam General: Alert, Severe distress, Obese HEENT: Atraumatic, PERRLA, Mucous membr. moist/pink, EOMI, Sclerae nonicteric Neck: Supple, 2+ carotid pulse no bruit, No LAD, Without JVD or thyroid abnormality Respiratory: Diminished, Other (HIGHRESP RATE.) Cardiovascular: Regular rate/rhythm, Normal S1 S2 Gastrointestinal: Normal bowel sounds, No tenderness Musculoskeletal: No tenderness Integumentary: No rashes Neurological: Normal gait, Normal speech, Normal strength at 5/5 x4 extr, Normal tone, Normal affect Lymphatics: No axilla or inguinal lymphadenopathy - Studies Laboratory Data (last 24 hrs) 11/21/17 00:36: PT 11.3, INR 0.96, APTT 23.8 L 11/21/17 00:36: WBC 10.7, Hgb 14.0, Hct 43.0, Plt Count 309 11/21/17 00:36: B-Natriuretic Peptide 167 H 11/21/17 00:36: Sodium 140, Potassium 3.6, BUN 19, Creatinine 0.76, Glucose 212 H, Magnesium 1.6 L, Total Bilirubin 0.5, AST 26, ALT 28, Alkaline Phosphatase 76 Assessment and Plan - Problems (Diagnosis) (1) CHF (congestive heart failure) Current Visit: Yes Status: Chronic Plan: CXR REPORTS THIS BUT SHE HAS THESE SS FROM FIBROSIS FOR LONG TIME IN ADDITION TO PULM HTN. ECHO HAS BEEN DONE SHE IS NOT ABLE TO TOLERATE LASIX, HER BP WILL START FALLING. (2) SOB (shortness of breath) Onset Date: 11/21/17 Current Visit: Yes Status: Chronic Plan: SCARRING IS THE MAIN REASON FOR HER END STAGE DISEASE. HER FAMILY HAS LOT OF OPINIONS. ONE DAUGHTER IS OKAY WITH HOSPICE. OTHER ONE DROVE HER TO [facility] ABOUT4 MONTHS AGO WHEN I MENTIONED HOSPICE. SHE IS A GOOD HOSPICE CANDIDATE. HER OXYGEN IS DOWN AT 70% WITH OXYGEN WHEN SHE TALKS. THIS IS NOT CURABLE. FAMILY IS VERY EMOTIONAL ABOUT DYING AND HER UNDERSTANDING IS VERY POOR ABOUT THE DISEASE PROCESS. (3) Acute and chronic obstructive bronchitis Current Visit: No Status: Chronic (4) Moderate to severe pulmonary hypertension Current Visit: No Status: Chronic (5) Pulmonary fibrosis Onset Date: 11/17/16 Current Visit: No Status: Chronic - Advance Directives Does patient have a Living Will: No Does patient have a Durable POA for Healthcare: No
[2017-11-21] MEDS: ATORVASTATIN 10 MG TAB PO SCH (21:43)
[2017-11-21] MEDS: ACETAMINOPHEN 500 MG TAB PO PRN (21:50)
[2017-11-22] MEDS: Levofloxacin500mg IV 500 MG/100 ML BAG IV SCH (03:10)
[2017-11-22] MEDS: ACETAMINOPHEN 500 MG TAB PO PRN ×2 (04:02→17:21)
[2017-11-22 06:13] LABS: Absolute Lymphocytes (CBC) 1.6 K/uL (0.7-4.9); Absolute Monocytes 0.7 K/uL (0.1-1.3); Absolute Neutrophil 6.7 K/uL (1.8-8.0); Eosinophils % 9.8 % (0-4.4); Lymphocytes % 15.5 % (15.3-44.8); MCH 32.8 pg (27.0-35.0); MCV 100.8 fL (80-100); MPV 8.1 fL (7.6-11.3); Monocytes % 6.8 % (3.3-12.3); RBC Red Blood Cell Count 3.77 M/uL (3.86-4.86)
--- NOTE | 2017-11-22 07:08 | RAD REPORT ---
EXAM DESCRIPTION: RAD - Chest Single View - 11/22/2017 6:41 am CLINICAL HISTORY: Chest pain, shortness of breath COMPARISON: November 21 TECHNIQUE: AP portable chest image was obtained 0628 hours . FINDINGS: Extensive interstitial opacification is present now with a some patchy alveolar opacificat ion in the mid upper lung blackwell. Airspace opacities in the lung bases have not changed significantly from comparison. Cardiomegaly and vascular engorgement remain. Trachea is midline. No pneumothorax o r large pleural effusion. No gross bony abnormality seen. No acute aortic findings suspected. IMPRESSION: Slight worsening of the moderate CHF/volume overload pattern since prior day study.
[2017-11-22 07:55] LABS: Potassium 3.5 mEq/L (3.6-5.0)
[2017-11-22] MEDS: FUROSEMIDE 40 MG/4 ML VIAL IV SCH ×2 (08:45→16:26)
[2017-11-22] MEDS: GABAPENTIN 300 MG CAP PO SCH ×3 (08:45→21:12)
[2017-11-22] MEDS: OXYBUTYNIN CHLORIDE 5 MG TAB PO SCH (08:45)
--- NOTE | 2017-11-22 12:25 | P.PN ---
Subjective Date of Service: 11/22/17 Chief Complaint: Pulmonary fibrosis Subjective: Improving (The patient is 77 years of age is doing much better she is more alert responsive he has done well with low-dose of morphine) Review of Systems is unable to be obtained Physical Examination - Vital Signs Temperature: 97.8 F Blood Pressure: 104/68 Pulse: 99 Respirations: 18 Pulse Ox (%): 93 - Physical Exam General: Alert, Cooperative Neck: Supple Respiratory: Crackles/rales (Bilateral crackles) Cardiovascular: No edema Assessment & Plan - Problems (Diagnosis) (1) Pulmonary fibrosis Onset Date: 07/03/17 Current Visit: No Status: Acute Plan: Patient is doing better I have discussed at length with the family members the guarding a poor prognosis progression of her interstitial lung disease to consider hospice low-dose morphine for dyspnea and is intolerant to steroids
[2017-11-22] MEDS: ATORVASTATIN 10 MG TAB PO SCH (21:13)
--- NOTE | 2017-11-22 22:21 | P.PN ---
Subjective Date of Service: 11/22/17 Chief Complaint: SEVERE SHORTNES OF BREATH Subjective: No new changes MS. BRAN CAN'T TALK MORE THAN TWO WORDS WITHOUT STOPPING TO BREATH. NOT ABLE TO COMMUNICATE WITH LANGUAGE BARRIER. NO FAMILY AT BEDSIDE THIS AM. Review of Systems 10-point ROS is otherwise unremarkable General: Weakness, Malaise Respiratory: Shortness of Breath, As per HPI Physical Examination - Vital Signs Temperature: 97.0 F Blood Pressure: 98/56 Pulse: 91 Respirations: 17 Pulse Ox (%): 93 - Physical Exam General: Moderate distress, Severe distress, Obese HEENT: Atraumatic, PERRLA, EOMI Neck: Supple, JVD not distended Respiratory: Diminished, Crackles/rales Cardiovascular: Regular rate/rhythm, Normal S1 S2 Gastrointestinal: Normal bowel sounds, No tenderness Musculoskeletal: No tenderness Integumentary: No rashes Neurological: Normal speech, Normal tone, Normal affect Lymphatics: No axilla or inguinal lymphadenopathy - Studies Medications List Reviewed: Yes Assessment And Plan - Current Problems (Diagnosis) (1) CHF (congestive heart failure) Current Visit: Yes Status: Chronic Plan: CXR REPORTS THIS BUT SHE HAS THESE SS FROM FIBROSIS FOR LONG TIME IN ADDITION TO PULM HTN. ECHO HAS BEEN DONE SHE IS NOT ABLE TO TOLERATE LASIX, HER BP WILL START FALLING. (2) SOB (shortness of breath) Onset Date: 11/21/17 Current Visit: Yes Status: Chronic Plan: SCARRING IS THE MAIN REASON FOR HER END STAGE DISEASE. HER FAMILY HAS LOT OF OPINIONS. ONE DAUGHTER IS OKAY WITH HOSPICE. OTHER ONE DROVE HER TO [facility] ABOUT4 MONTHS AGO WHEN I MENTIONED HOSPICE. SHE IS A GOOD HOSPICE CANDIDATE. HER OXYGEN IS DOWN AT 70% WITH OXYGEN WHEN SHE TALKS. THIS IS NOT CURABLE. FAMILY IS VERY EMOTIONAL ABOUT DYING AND HER UNDERSTANDING IS VERY POOR ABOUT THE DISEASE PROCESS. (3) Acute and chronic obstructive bronchitis Current Visit: No Status: Chronic (4) Moderate to severe pulmonary hypertension Current Visit: No Status: Chronic Plan: DR. JORDAN IS TRYING TO HAVE HER ON HOSPICE. LAST TIME A FEW MONTHS AGO I MENTIONED HOSPICE AND FAMILY TOOK HER TO [place]. THERE IS NO CURE. SHE CAME BACK TO OFFICE IN THE SAME SHAPE WITH OYGEN DOWN TO 70% WITH A FEW STEPS WHILE ON 4 LT OXYGEN. I HAVE TALKED TO ONE DAUGHTER. DR. JORDAN SAYS OUT OF FIVE ONLY ONE DAUGHTER IS NOT AGGREABLE WITH COMFORT CARE. (5) Pulmonary fibrosis Onset Date: 11/17/16 Current Visit: No Status: Chronic
[2017-11-23] MEDS: Levofloxacin500mg IV 500 MG/100 ML BAG IV SCH (03:13)
[2017-11-23] MEDS: ACETAMINOPHEN 500 MG TAB PO PRN ×2 (04:50→13:35)
[2017-11-23 06:21] VITALS: BMI 33.7
[2017-11-23] MEDS: OXYBUTYNIN CHLORIDE 5 MG TAB PO SCH (08:42)
[2017-11-23] MEDS: FUROSEMIDE 40 MG/4 ML VIAL IV SCH ×2 (08:42→10:01)
[2017-11-23] MEDS: GABAPENTIN 300 MG CAP PO SCH ×2 (08:42→13:27)
[2017-11-23 12:42] VITALS: O2SAT 96
[2017-11-23 15:53] VITALS: BP 110/66; TEMP 98.4
== END 2017-11-23 16:12 | disposition hospice, home (50) | DRG 293 ==
LOC: ER 00:31 → ERHOLD 02:41 → 4TH 03:19
PROVIDERS: ADMIT Internal Medicine; ATTEND Internal Medicine
PROC: 5A09357 Assistance with Respiratory Ventilation, Less than 24 Consecutive Hours, Continuous Positive Airway Pressure (ICD-10-PCS; principal; 2017-11-21)
DX: I50.9 Heart failure, unspecified (principal); I27.20 Pulmonary hypertension, unspecified; J84.10 Pulmonary fibrosis, unspecified; E11.9 Type 2 diabetes mellitus without complications; J44.9 Chronic obstructive pulmonary disease, unspecified; I10 Essential (primary) hypertension; G47.30 Sleep apnea, unspecified
CPT/HCPCS: 36415; 71045; 80048; 80076; 81003; 82805; 82962; 83735; 83880; 84484; 85025; 85610; 85730; 87040; 93005; 94660; 96365; 96375; 99285; J1940; J3475

== ENCOUNTER 2017-11-30 20:26 | Emergency (ER) | payer OTHER ==
[2012-02-23 07:44] VITALS: BP 118/65
[2017-11-30] MEDS ORDERED: EPINEPHrine 1 MG/10 ML SYR IV ONE (20:27)
[2017-11-30] MEDS ORDERED: ATROPINE SULF 1 MG/10 ML SYR IV ONE (20:27)
[2017-11-30] MEDS ORDERED: Caclcium Chloride 10% INJ SYR IV ONE (20:27)
[2017-11-30] MEDS ORDERED: EPINEPHRINE 1 MG/1 ML IV ONE (20:27)
--- OUTSIDE RECORDS SUMMARY | 2017-11-30 20:28 | XMS REPORT | Clinical Summary ---
:1940 Author Organization [facility] Address [address] [place] [address] Care Team Providers Name Role Phone Asked, [...] Bacon MD Lock, Zeinab Herrera MD after 11/29/2016 Social History Tobacco Use Types Packs/Day Years Used Date Never Smoker Smokeless Tobacco: Never Used Alcohol Use Drinks/Week oz/Week Comments No Sex Assigned at Date Recorded Not on file Last Filed Vital Signs Vital Sign Reading Time Taken Blood Pressure 97/65 07/09/2017 1:30 PM FUEL TESTING TECHNICIAN Pulse 68 07/09/2017 1:30 PM FUEL TESTING TECHNICIAN Temperature 36.6 C (97.9 F) 07/09/2017 1:30 PM FUEL TESTING TECHNICIAN Respiratory Rate 20 07/09/2017 1:30 PM FUEL TESTING TECHNICIAN Oxygen Saturation 95% 07/09/2017 1:30 PM FUEL TESTING TECHNICIAN Inhaled Oxygen Concentration - - Weight 73.5 kg (162 lb) 07/09/2017 5:00 AM FUEL TESTING TECHNICIAN Height 149.9 cm (4' 11") 07/06/2017 12:33 AM FUEL TESTING TECHNICIAN Body Mass Index 32.72 07/09/2017 5:00 AM FUEL TESTING TECHNICIAN Plan of Treatment Health Maintenance Due Date Last Done Comments COLONOSCOPY 1992 MAMMOGRAM 1992 SHINGRIX VACCINE (#1) 1992 ZOSTER VACCINE 2002 PNEUMOCOCCAL POLYSACCHARIDE VACCINE AGE 65 AND OVER 2007 PNEUMOCOCCAL-13 2007 INFLUENZA VACCINE 02/28/2018 Procedures Procedure Name Priority Date/Time Associated Comments Diagnosis ECHOCARDIOGRAM 2D Routine 07/06/2017 11:00 Results for this COMPLETE W MMODE AM FUEL TESTING TECHNICIAN procedure are in SPECTRAL COLOR DOPPLER the results (10780) section. CV STRESS TEST NUCLEAR Routine 07/06/2017 8:53 Results for this CARDIO AM FUEL TESTING TECHNICIAN procedure are in the results section. after 11/29/2016 Results Estimated GFR (07/20/2017 12:25 PM)Only the [...] and Americans. Specimen Performing Laboratory Plasma specimen [facility] DEPARTMENT OF PATHOLOGY AND GENOMIC MEDICINE [address] [place] [address] 31849 CBC with platelet and differential (07/20/2017 12:25 [...] (promyelocytes, myelocytes, metamyelocytes) Specimen Performing Laboratory Blood [facility] DEPARTMENT OF PATHOLOGY AND GENOMIC MEDICINE [address] [place] [address] 36352 B natriuretic peptide (07/20/2017 12:25 PM)Only the most recent of2 resultswithin the time period is included. Component Value Ref Range BNP 129 (H) 0 - 100 pg/mL Specimen Performing Laboratory Blood [facility] DEPARTMENT OF PATHOLOGY AND GENOMIC MEDICINE [address] [place] [address] 42566 Basic metabolic panel (07/20/2017 12:25 PM)Only the [...] 10.2 mg/dL Specimen Performing Laboratory Plasma specimen [facility] DEPARTMENT OF PATHOLOGY AND GENOMIC MEDICINE [address] [place] [address] 10405 POC glucose (07/09/2017 1:08 PM)Only the most recent of14 resultswithin the time period is included. Component Value Ref Range POC glucose 296 (H) 65 - 99 mg/dL Comment: [facility] Notified RN Meter ID: [id number] [place] Man: Andrew Lyman Specimen Performing Laboratory [facility] DEPARTMENT OF PATHOLOGY AND GENOMIC MEDICINE [address] [place] [address] FL Esophagram Complete (07/07/2017 4:23 PM) Specimen Performing Laboratory [facility] [address] [place] [address] Narrative EXAMINATION:FL ESOPHAGRAM COMPLETE CLINICAL HISTORY:GERD COMPARISON:None. [...] esophageal emptying. No evidence of gastroesophageal reflux. [facility]-[id number] Procedure Note Interface, Radiology Results Incoming - 07/07/2017 5:56 PM FUEL TESTING TECHNICIAN EXAMINATION: FL ESOPHAGRAM COMPLETE CLINICAL HISTORY: GERD [...] esophageal emptying. No evidence of gastroesophageal reflux. [facility]-[id number] SS-B antibody (07/06/2017 4:50 PM) Component Value Ref Range Sjogren's SS-B antibody <0.2 0.0 - 0.9 AI Comment: SS-B is less sensitive than SS-A for Sjogren's syndrome, but is more specific and is useful in distinguishing SLE from Sjogren's. SS-A should beordered separately if clinically warranted. Specimen Performing Laboratory Serum [facility] DEPARTMENT OF PATHOLOGY AND [facility] MEDICINE [address] [place] [address]908 SS-A antibody (07/06/2017 4:50 PM) Component Value Ref Range Sjogren's SS-A antibody <0.2 0.0 - 0.9 AI Comment: SS-A is sensitive for Sjogren's syndrome, but may also be positive with SLE(up to 30% of SLE patients are positive for SS-A). SS-B is less sensitive, but is useful in distinguishing SLE from Sjogren's, and should be ordered if clinically warranted Specimen Performing Laboratory Serum [facility] PATHOLOGY [address] [address] Hypersensitivity pneumonitis I (07/06/2017 4:50 PM) Component Value Ref Range Aspergillus fumigatus #1 None Detected None-Detected Aspergillus fumigatus #6 None Detected None-Detected Aureobasidium pullulans None Detected None-Detected Comment: Testing includes antibodies directed at Aureobasidium pullulans, Aspergillus fumigatus #1, Aspergillus fumigatus #6, Micropolyspora faeni and Thermoactinomyces vulgaris #1. [place] serum None Detected None-Detected Micropolyspora faeni None Detected None-Detected Thermoactinomyces vulgaris #1 None Detected None-Detected Comment: Performed by [facility], [address] [place] [address] [id number] [email or web address], Zane Saavedra MD - Lab. Director Specimen Performing Laboratory Serum [facility] [facility] [address] [place] [address] Anti-neutrophilic cytoplasmic Abs panel (07/06/2017 4:50 PM) Component Value Ref Range ANCA screen Negative Negative Specimen Performing Laboratory Blood [facility] DEPARTMENT OF PATHOLOGY AND [address] [address] Rheumatoid factor (07/06/2017 4:50 PM) Component Value Ref Range Rheumatoid factor 18 (H) 0 - 13 IU/mL Specimen Performing Laboratory Plasma specimen [facility] [place] [address] C-reactive protein (07/06/2017 4:50 PM) Component Value Ref Range CRP <0.30 0.00 - 0.50 mg/dL Specimen Performing Laboratory Plasma specimen [facility] [place] [address] JOHNATHON (07/06/2017 4:50 PM) Component Value Ref Range JOHNATHON screen Not Detected <1:80 Specimen Performing Laboratory Blood [facility] [place] [address] Folate level (07/06/2017 1:23 PM) Component Value Ref Range Folate >20.0 4.8 - 24.2 ng/mL Specimen Performing Laboratory Serum [facility] [place] [address] Vitamin B12 level (07/06/2017 1:23 PM) Component Value Ref Range Vitamin B12 1,256 (H) 211 - 946 pg/mL Comment: Significant overlap exists between normal and deficiency states. However, most patients with deficiencies will have Serum B12 <200 pg/mL. Specimen Performing Laboratory Serum [facility] [place] [address] Echocardiogram complete w contrast and 3D if needed (07/06/2017 11:00 AM) Specimen Performing [facility] [address] [place] [address] Narrative Echocardiography Report [address] [place] [address] Pat.Name:PETER DIEGO Pat.ID:[id number] .Date: 07/06/2017 Refer.MD:KRISTIE ALMENDAREZ MD Exam Time: 10:04:00 AM Study Type:Routine Echo Height:59inWeight: 169lb BSA: 1.72 m2 DOBAge:1940,76Y Sex: FEMALEBP:94/54 HR:78 bpmSonogrphr: TEMITOPE Manzanares Pat. Stat.:Inpatient Room:[facility] Study Status:Final Echo Event ID:[id number] Order ID:[id number] Reason for Study:Heart Failure; HF - Initial [...] RAPof 5 mmHg. MEASUREMENTS: 2D Parasternal Long [place] Ao An1.8 cmLVPWd1.1 cm LVOT 1.8 cmLA Ds4.1 cm LVIDd5.1 cmIndex 3 cm/m Ao Rtd 3.2 cm Index1.9 cm/m LVIDs2.6 cmLV Byxs723.6 g(87-129) LV%fs 48.8 % LVM Index 125.3 g/m2 IVSd 1.1 cmRWT0.5 LA Sng Plane LA Area 20 cm2(8.8-23.4) LA Vol 55.2 ml Index32.1 ml/m LA LngAx 6.4 cm RA Sng Plane RA Area 23.5 cm2(8.3-19.5) RA Vol77.2 ml Index44.9 ml/m RA LngAx 5.8 cm DOPPLER LVOT Stroke Vol LVOT 1.8 cmLVOT CO3.7 l/min LVOT TVI21.3 cmLVOT CI2.1 l/m/m2 LVOT Tm291 cirfJJ32 bpm LVOT SV 54.3 ml Signed 07/06/2017 02:19 PM Najma Ambrosio M.D. Procedure Note Interface, Radiology Results In - 07/06/2017 2:20 PM FUEL TESTING TECHNICIAN Echocardiography Report [address] [place] [address] Pat.Name: PETER DIEGO Pat.ID: [id number] .Date: 07/06/2017 Refer.MD: KRISITE ALMENDAREZ MD Exam Time: 10:04:00 AM Study Type:Routine Echo Height: 59in Weight: 169lb BSA: 1.72 m2 Age: 14 1940,76Y Sex: FEMALE BP: 94/54 HR: 78 bpm Sonogrphr: TEMITOPE Manzanares Pat. Stat.:Inpatient Room: [facility] Study Status:Final Echo Event ID:[id number] Order ID: [id number] Reason for Study:Heart Failure; HF - Initial [...] of 5 mmHg. MEASUREMENTS: 2D Parasternal [place] Ao An 1.8 cm LVPWd 1.1 cm [...] report.-Electronically Signed By Alcides OLIVARES, Diandra Pereyra ([id number]), editor producer Fahad Sharp ([id number]) on 07/06/2017 11:21:19 AM Specimen Performing Laboratory [facility] [address] [place] [address] CV myocardial perfusion (07/06/2017 8:53 AM) Specimen Performing Laboratory [facility] [address] [place] [address] Narrative Nuclear Cardiology and Cardiac CT [address] [place] [address] Myocardial Perfusion Imaging Report Stress ECG tracings are available in MUSE, EPIC and CV Web All ECG interpretations are included in this report Pat.Name:PETER DIEGO Pat.ID:[id number] .Date: 07/06/2017 Refer.MD:ZEINAB CARABALLO MD Exam Time: 8:33:00 AM Study Type:Myocardial Perfusion Imaging Height:59inWeight: 169lb BSA: 1.72 m2 DOBAge:1940,76Y Sex: FEMALEBP:106/74 HR:60 bpmHCT: 39.7 % Nuclear Tech:GIFTY Rios, ARRT/ GIFTY Suarez Pat. Stat.:Outpatient Room:[address] Event ID:[id number] Order ID:[id number] Reason for Study:Chest pain, unspecified* History / Clinical:Congestive heart failure, COPD, Diabetes, Hyperlipidemia, Hypertension, Diabetic Neuropathy, GERD, Hernia Repair Procedures:Stress only Race:C Risk Factors:Diabetes, Hyperlipidemia, Hypertension Clinical Symptoms:Regadenoson Physical Exam:S1, S2 Surgery: Serum K+ Date,4.807/06/2017, Troponin I Date, 1)negative07/05/2017 2)negative07/06/2017, BUN/Creatinine Date, 17/0.707/06/2017 Medications:Cozaar, Lasix, Breo-Ellipta, Neurontin, [...] Radiology Results In - 07/06/2017 2:11 PM FUEL TESTING TECHNICIAN Nuclear Cardiology and Cardiac CT [address] [place] [address] Myocardial Perfusion Imaging Report Stress ECG tracings are available in [employer] and [employer] ([employer]) All ECG interpretations are included in this report Pat.Name: PETER DIEGO Pat.ID: [id number] .Date: 07/06/2017 Refer.MD: ZEINAB CARABALLO MD Exam Time: 8:33:00 AM Study Type:Myocardial Perfusion Imaging Height: 59in Weight: 169lb BSA: 1.72 m2 Age: 14 1940,76Y Sex: FEMALE BP: 106/74 HR: 60 bpm HCT: 39.7 % Nuclear Tech:MAURIZIO RiosMT, ARRT/ GIFTY Suarez Pat. Stat.:Outpatient Room: J810 Nuclear Event ID:[id number] Order ID: [id number] Reason for Study:Chest pain, unspecified* History / Clinical:Congestive heart failure, COPD, Diabetes, Hyperlipidemia, Hypertension, Diabetic Neuropathy, GERD, Hernia Repair Procedures:Stress only Race: C Risk Factors:Diabetes, Hyperlipidemia, Hypertension Clinical Symptoms:Regadenoson Physical Exam:S1, S2 Surgery: Serum K+ Date, 4.807/06/2017, Troponin I Date, 1)negative/07/05/2017 2)negative/07/06/2017 , BUN/Creatinine Date, 17/0.707/06/2017 Medications:Cozaar, Lasix, Breo-Ellipta, Neurontin, [...] crystals, UA Few Specimen Performing Laboratory Urine [facility] DEPARTMENT OF PATHOLOGY AND GENOMIC MEDICINE [address] [place] [address] Gram stain (07/06/2017 5:40 AM) Component Value Ref Range Gram stain result No WBC's or organisms seen. Comment: Specimen Information Specimen Source: Urine Specimen Site: Catheterized Specimen Performing Laboratory Urine - Catheterized [facility] DEPARTMENT OF PATHOLOGY AND [facility] MEDICINE [address] [place] [address] Urine culture (07/06/2017 5:40 AM) Component Value Ref Range Urine culture isolate Gram negative rods 10-1 cfu/ml (A) Comment: Specimen Information Specimen Source: Urine Specimen Site: Catheterized Urine culture isolate Mixed Gram positive uvaldo 10-3 cfu/ml (A) Specimen Performing Laboratory Urine - Catheterized [facility] DEPARTMENT OF PATHOLOGY AND [facility]ICINE [address] [place] [address] Troponin (07/06/2017 4:21 AM)Only the most recent [...] myocardial injury. Specimen Performing Laboratory Plasma specimen [facility] DEPARTMENT OF PATHOLOGY AND GENOMIC MEDICINE [address] [place] [address] Manual differential (07/06/2017 4:21 AM) Component Value [...] Enlarged platelets Moderate (A) Specimen Performing Laboratory [facility] DEPARTMENT OF PATHOLOGY AND GENOMIC MEDICINE [address] [place] [address]98 Thyroid stimulating hormone (07/06/2017 4:21 AM) Component Value Ref Range TSH 3.85 0.27 - 4.20 uIU/mL Specimen Performing Laboratory Plasma specimen [facility] DEPARTMENT OF PATHOLOGY AND GENOMIC MEDICINE [address] [place] [address] Magnesium level (07/06/2017 4:21 AM) Component Value Ref Range Magnesium 1.8 1.6 - 2.4 mg/dL Specimen Performing Laboratory Plasma specimen [facility] DEPARTMENT OF PATHOLOGY AND GENOMIC MEDICINE [address] [place] [address] Hemoglobin A1c (07/06/2017 4:21 AM) Component Value [...] type 1 diabetes. Specimen Performing Laboratory Blood [facility] DEPARTMENT OF PATHOLOGY AND GENOMIC MEDICINE [address] [place] [address] Lipid panel (07/06/2017 4:21 AM) Component Value Ref Range Cholesterol 93 <200 mg/dL Triglycerides 120 <150 mg/dL HDL cholesterol 34 (L) >40 mg/dL LDL cholesterol 40Comment: Result obtained by direct LDL <100 mg/dL measurement Lipid panel interpretation SeeBelow Comment: Total Cholesterol (mg/dL) <200 Desirable 526-790Vfbmpzaity-gaxn >=240High Triglycerides (mg/dL) <150 Normal 283-076Mlhvqdutem-gtap 200-499High >=500Very high HDL Cholesterol (mg/dL) <40Low (male) <40Low (female) LDL Cholesterol (mg/dL) <100 Optimal 100-129Near or above optimal [phone]-jqqr 160-189High >=190Very high Risk Catergories that modify [...] (>=200 mg/dL) Specimen Performing Laboratory Plasma specimen [facility] DEPARTMENT OF PATHOLOGY AND GENOMIC MEDICINE [address] [place] [address] Respiratory pathogen panel (07/06/2017 4:18 AM) Component [...] Left Specimen Performing Laboratory Nares - Left [facility] DEPARTMENT OF PATHOLOGY AND GENOMIC MEDICINE [address] [place] [address] ECG 12 lead (07/06/2017 4:00 AM)Only the most recent of2 resultswithin the time period is included. Component Value Ref Range Ventricular rate 62 Atrial rate 62 OR interval 158 QRSD interval 78 QT interval 346 QTC interval 351 P axis 1 25 QRS axis 1 145 T wave axis -21 EKG impression Normal sinus rhythm-Right axis deviation-Anterior infarct , age undetermined-ST & T wave abnormality, consider lateral ischemia-Abnormal ECG -In automated comparison with ECG of 06-DEC-2017 16:07,-Si gnificant changes have occurred- Specimen Performing Laboratory [facility] MUSE [address] [place] [address] CT Angiogram Pe Chest (07/05/2017 7:23 PM) Specimen [facility] [address] [place] [address] ANGIOGRAM PE CHEST CLINICAL INDICATION: [...] hepatic veins, suggesting elevated right heart pressures. [facility]-[id number] Procedure Note Interface, Radiology Results Incoming - 07/05/2017 7:40 PM FUEL TESTING TECHNICIAN CT ANGIOGRAM PE CHEST CLINICAL INDICATION: chest [...] hepatic veins, suggesting elevated right heart pressures. [facility]-[id number] XR Chest 1 Vw Portable (07/05/2017 4:51 PM) Specimen Performing Laboratory [facility] [address] [place] [address] Narrative EXAMINATION:XR CHEST 1 VW PORTABLE CLINICAL HISTORY:Chest Pain COMPARISON:None. IMPRESSION: The heart is enlarged Patchy infiltrates in lungs bilaterally could be secondary to mild pulmonary vascular congestion or a infectious/plantar process Degenerative changes are present throughout the bony structures without evidence of a suspicious focal lesion. Diffuse calcified atherosclerotic vascular disease throughout the arterial structures. Small bilateral pleural effusions [id number] Procedure Note [facility], Radiology Results Incoming - 07/05/2017 5:00 PM FUEL TESTING TECHNICIAN EXAMINATION: XR CHEST 1 VW PORTABLE CLINICAL HISTORY: Chest Pain COMPARISON: None. IMPRESSION: The heart is enlarged Patchy infiltrates in lungs bilaterally could be secondary to mild pulmonary vascular congestion or a infectious/plantar process Degenerative changes are present throughout the bony structures without evidence of a suspicious focal lesion. Diffuse calcified atherosclerotic vascular disease throughout the arterial structures. Small bilateral pleural effusions [id number] Prothrombin time with INR (07/05/2017 4:44 PM) Component Value Ref Range Prothrombin time 19.6 (H) 12.0 - 15.0 sec INR 1.6 Comment: The International Normalized Ratio (INR) is a therapeutic monitoring tool for patients who are stable on oral anticoagulant therapy. An INR of 2.0-3.0 is suggested for deep vein thrombosis/pulmonary embolism. Specimen Performing Laboratory Blood [facility] DEPARTMENT OF PATHOLOGY AND GENOMIC MEDICINE [address] [place] [address] Creatine kinase, total (CPK) (07/05/2017 4:44 PM) Component Value Ref Range Creatine kinase 23 (L) 26 - 192 U/L Specimen Performing Laboratory Plasma specimen [facility] DEPARTMENT OF PATHOLOGY AND GENOMIC MEDICINE [address] [place] [address] Comprehensive metabolic panel (07/05/2017 4:44 PM) Component [...] Protein 6.3 6.3 - 8.3 g/dL Comment: [place] 4.6-7.0 g/dL 1 week 4.4-7.6 g/dL 7 months-1year5.1-7.3 g/dL 1-2 years5.6-7.5 g/dL >3 years6.0-8.0 g/dL 18-150 6.3-8.3 g/dL Albumin 2.8 (L) 3.5 - 5.0 g/dL A/G ratio 0.8 0.7 - 3.8 Alkaline phosphatase 75 35 - 104 U/L AST 29 10 - 35 U/L ALT 31 5 - 50 U/L Total bilirubin 0.4 0.0 - 1.2 mg/dL Specimen Performing Laboratory Plasma specimen [facility] DEPARTMENT OF PATHOLOGY AND GENOMIC MEDICINE [address] [place] [address] after 11/29/2016 Insurance Payer Benefit Plan / Group Subscriber ID Type Phone Address [employer] xxxxxxxxx O [phone] [address]
[2017-11-30] MEDS ORDERED: EPINEPHrine 1 MG/10 ML SYR ONE (20:41)
--- NOTE | 2017-11-30 20:59 | EDPHYS ---
Physician Documentation [facility] Name: Peter Diego Age: 77 yrs Sex: Female : 1940 Arrival Date: 11/30/2017 Time: 20:29 Bed 4 Private MD: ED Physician Michael Mayen HPI: 11/30 20:49 This 77 yrs old Female presents to ER via Unassigned with complaints of gs collapse. 20:49 Preceding the arrest, the patient was dyspneic. The arrest occurred at home. gs Pre-hospital course: The arrest was witnessed by EMS. Bystanders at the scene performed CPR. ACLS details: Airway: oral intubation, Medications given by EMS prior to arrival - Epinephrine IV x 2 doses, Response to therapy: continued arrest. The patient has not experienced similar symptoms in the past. Historical: - Allergies: 21:29 HYDROCODONE; lp1 21:29 PENICILLINS; lp1 21:29 Tramadol HCl; lp1 - Home Meds: 21:29 gabapentin 300 mg Oral cap 1 cap 3 times per day [Active]; Lasix 40 mg Oral tab 1 tab lp1 once daily [Active]; metformin 500 mg Oral tab 2 tabs 2 times per day [Active]; oxybutynin chloride 5 mg Oral tab 1 tab daily [Active]; pravastatin 20 mg Oral tab 1 tab once daily [Active]; raloxifene 60 mg Oral tab 1 tab once daily [Active]; Spiriva with HandiHaler 18 mcg inhalation CpDv 1 cap once daily [Active]; Victoza 3-Augie 0.6 mg/0.1 mL (18 mg/3 mL) subcutaneous pnij 0.2 mL once daily [Active]; - PMHx: 21:29 bowel obstruction; cardiomegaly; CHF; COPD; Diabetes - NIDDM; Hyperlipidemia; lp1 Pneumonia; pulmonary fibrosis; Severe pulmonary hypertension; - Immunization history:: Adult Immunizations up to date. - Social history:: Smoking status: Patient/guardian denies using tobacco, never smoked. - Unable to obtain history due to: unresponsive. ROS: 20:49 Unable to obtain ROS due to patient distress, patient is on ventilator. gs Exam: 20:49 Head/Face: Normocephalic, atraumatic. Eyes: Pupils equal round and reactive to light, gs extra-ocular motions intact. Lids and lashes normal. Conjunctiva and sclera are non-icteric and not injected. Cornea within normal limits. Periorbital areas with no swelling, redness, or edema. ENT: Nares patent. No nasal discharge, no septal abnormalities noted. Tympanic membranes are normal and external auditory canals are clear. Oropharynx with no redness, swelling, or masses, exudates, or evidence of obstruction, uvula midline. Mucous membranes moist. Neck: Trachea midline, no thyromegaly or masses palpated, and no cervical lymphadenopathy. Supple, full range of motion without nuchal rigidity, or vertebral point tenderness. No Meningismus. Chest/axilla: Normal chest wall appearance and motion. Nontender with no deformity. No lesions are appreciated. 20:49 Constitutional: The patient appears comatose. 20:49 Cardiovascular: Rate: actual rate is 0 bpm, Pulses: absent. 20:49 Respiratory: intubated color change bs > on left pulling back tube. 20:49 Abdomen/GI: Hernia: noted in the rlq. 20:49 Skin: Appearance: Color: pale, Temperature: cool. 20:49 Neuro: Orientation: unable to test, the patient is comatose. 20:49 Unable to obtain exam due to patient distress. Vital Signs: 20:20 Pulse Ox 92% on ETT ambu; Weight 99.79 kg; Height 5 ft. 5 in. (165.10 cm); lp1 20:30 Pulse Ox 90% on ETT ambu; lp1 20:41 Pulse Ox 94% on ETT ambu; lp1 20:20 Body Mass Index 36.61 (99.79 kg, 165.10 cm) lp1 Procedures: 20:49 Ultrasound: Type: Fast exam, no cardiac activity after 50 minutes of acls. MDM: 20:48 Patient medically screened. gs 20:49 Differential diagnosis: arrythmia, cardiac arrest, respiratory arrest. Data reviewed: vital signs, nurses notes. Response to treatment: There is no appreciated change of the patient's symptoms at this time, discussed with family will terminate efforts. Administered Medications: 20:22 Drug: EPINEPHrine 0.1mg/mL 1:10,000 1 mg Route: IVP; Site: left antecubital; lp1 21:21 Follow up: Response: No change in condition lp1 20:25 Drug: EPINEPHrine 0.1mg/mL 1:10,000 1 mg Route: IVP; Site: left antecubital; lp1 21:21 Follow up: Response: No change in condition lp1 20:28 Drug: EPINEPHrine 0.1mg/mL 1:10,000 1 mg Route: IVP; Site: left antecubital; lp1 21:21 Follow up: Response: No change in condition lp1 20:30 Drug: Atropine 1 mg Route: IVP; Site: left antecubital; lp1 21:22 Follow up: Response: No change in condition lp1 20:31 Drug: Sodium Bicarbonate 1 amp Route: IVP; Site: left antecubital; lp1 21:21 Follow up: Response: No change in condition lp1 20:31 Drug: EPINEPHrine 0.1mg/mL 1:10,000 1 mg Route: IVP; Site: left antecubital; lp1 21:22 Follow up: Response: No change in condition lp1 20:34 Drug: EPINEPHrine 0.1mg/mL 1:10,000 1 mg Route: IVP; Site: left antecubital; lp1 21:22 Follow up: Response: No change in condition lp1 20:34 Drug: Calcium Chloride 1 grams Route: IVP; Site: left antecubital; lp1 21:22 Follow up: Response: No change in condition lp1 20:35 Drug: Sodium Bicarbonate 1 amp Route: IVP; Site: left antecubital; lp1 21:22 Follow up: Response: No change in condition lp1 20:37 Drug: EPINEPHrine 0.1mg/mL 1:10,000 1 mg Route: IVP; Site: left antecubital; lp1 21:23 Follow up: Response: No change in condition lp1 20:39 Drug: EPINEPHrine 0.1mg/mL 1:10,000 1 mg Route: IVP; Site: left antecubital; lp1 21:23 Follow up: Response: No change in condition lp1 20:42 Drug: EPINEPHrine 0.1mg/mL 1:10,000 1 mg Route: IVP; Site: left antecubital; lp1 21:23 Follow up: Response: No change in condition lp1 Point of Care Testing: Blood Glucose: 20:37 Blood Glucose: 442 mg/dL; lp1 Ranges: Critical Glucose Levels:Adult <50 mg/dl or >400 mg/dl <40 mg/dl or >180 mg/dl Disposition: 20:49 . gs 20:56 . Disposition: Patient pronounced on 11/30/17 20:47 by Michael Mayen. Impression: Cardiac arrest. 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 Signatures: Althea Shepard RN RN lp1 Michael Mayen MD MD gs Corrections: (The following items were deleted from the chart) 23:04 20:59 11/30/2017 20:59 Patient pronounced on 11/30/2017 at 20:47 by Michael Mayen. lp1 Impression: Cardiac arrest. Released to [employer].
--- NOTE | 2017-11-30 23:05 | ER ---
Nurse's Notes [facility] Name: Peter Diego Age: 77 yrs Sex: Female : 1940 Arrival Date: 11/30/2017 Time: 20:29 Bed 4 Private MD: Diagnosis: Cardiac arrest Presentation: 11/30 21:02 Presenting complaint: EMS states: toned out for difficulty breathing, on arrival of lp1 EMS, patient was short of breath with faint pulse, went unresponsive, witnessed at 1947, CPR initiated; X3 Epi given, last at 2016, shocked x1, IO to left knee. 21:03 Care prior to arrival: Oral intubation, with 7.5 ET tube CPR via thumper and is still lp1 in progress Placed on backboard. Glucose check: 407 Oxygen administered. via AMBU bag. Compressions began at 19:47. 21:03 Method Of Arrival: EMS: [facility] lp1 21:03 Acuity: ALEJANDRA 1 lp1 21:05 Initial Sepsis Screen: Does the patient meet any 2 criteria? No. Patient's initial lp1 sepsis screen is negative. Does the patient have a suspected source of infection? No. Patient's initial sepsis screen is negative. 21:05 Transition of care: patient was not received from another setting of care. Onset of lp1 symptoms was November 30, 2017 at 19:47. Historical: - Allergies: 21:29 HYDROCODONE; lp1 21:29 PENICILLINS; lp1 21:29 Tramadol HCl; lp1 - Home Meds: 21:29 gabapentin 300 mg Oral cap 1 cap 3 times per day [Active]; Lasix 40 mg Oral tab 1 tab lp1 once daily [Active]; metformin 500 mg Oral tab 2 tabs 2 times per day [Active]; oxybutynin chloride 5 mg Oral tab 1 tab daily [Active]; pravastatin 20 mg Oral tab 1 tab once daily [Active]; raloxifene 60 mg Oral tab 1 tab once daily [Active]; Spiriva with HandiHaler 18 mcg inhalation CpDv 1 cap once daily [Active]; Victoza 3-Augie 0.6 mg/0.1 mL (18 mg/3 mL) subcutaneous pnij 0.2 mL once daily [Active]; - PMHx: 21:29 bowel obstruction; cardiomegaly; CHF; COPD; Diabetes - NIDDM; Hyperlipidemia; lp1 Pneumonia; pulmonary fibrosis; Severe pulmonary hypertension; - Immunization history:: Adult Immunizations up to date. - Social history:: Smoking status: Patient/guardian denies using tobacco, never smoked. - Unable to obtain history due to: unresponsive. Screenin:00 Abuse screen: Denies threats or abuse. Denies injuries from another. Nutritional lp1 screening: No deficits noted. Tuberculosis screening: No symptoms or risk factors identified. Fall Risk Total Baires Fall Scale indicates High Risk Score (45 or more points). Side Rails Up X 2. Assessment: 20:20 CPR assessment: unresponsive, no respiratory effort, intubated, Ambu ventilation, pale, lp1 pulses present w/ compressions. 20:20 Cardiac rhythm is PEA. lp1 20:20 Neuro: Level of Consciousness is unresponsive. Cardiovascular: Capillary refill is > 3 lp1 seconds in bilateral fingers toes Pulses are absent in right femoral artery, left femoral artery, left carotid pulse and right carotid pulse Rhythm is PEA. Respiratory: Airway via oral intubation. GI: Abdomen is non-distended, obese. Derm: Skin is intact, Skin is pale, Skin temperature is cool. 20:27 Cardiac rhythm is PEA. lp1 20:30 Cardiac rhythm is PEA. lp1 20:33 Cardiac rhythm is PEA. lp1 20:36 Cardiac rhythm is PEA. lp1 20:39 Cardiac rhythm is PEA. lp1 20:41 Cardiac rhythm is PEA. lp1 20:44 Cardiac rhythm is PEA. lp1 20:46 Cardiac rhythm is PEA. lp1 20:47 General: Dr. Mayen at bedside with ultrasound to confirm no cardiac activity; Time of lp1 called at 2046. 21:35 Reassessment: Family reports pt's PCP is Dr. Dwyer. Dr. Dwyer notified of pt's passing aa1 and agrees to sign certificate. 21:38 Reassessment: [employer] contacted at this time, spoke with Gayathri, states she will contact lp1 daughter, Vaishnavi Diego for further evaluation of donation; . Vital Signs: 20:20 Pulse Ox 92% on ETT ambu; Weight 99.79 kg; Height 5 ft. 5 in. (165.10 cm); lp1 20:30 Pulse Ox 90% on ETT ambu; lp1 20:41 Pulse Ox 94% on ETT ambu; lp1 20:20 Body Mass Index 36.61 (99.79 kg, 165.10 cm) lp1 ED Course: 20:20 No provider procedures requiring assistance completed. Maintain EMS IV. Dressing lp1 intact. IO to left knee by EMS. 20:25 Patient has correct armband on for positive identification. Intubation: Ventilated with lp1 100% bag valve mask (BVM) prior to procedure. O2 saturation prior to procedure was 92 %. 7.5 Fr. ETT placed orally. Performed by [facility] Placement verified by CO2 detector w/ + color change, auscultating bilateral breath sounds. 20:28 Inserted saline lock: 20 gauge in left antecubital area, using aseptic technique. By lp1 Ashley Mandujano RN. 20:29 Patient arrived in ED. rg2 20:48 Michael Mayen MD is Attending Physician. gs 20:56 Michael Mayen MD is Pronouncing Provider. gs 21:01 Althea Shepard RN is Primary Nurse. lp1 21:07 Triage completed. lp1 21:23 Arm band placed on left wrist. lp1 Administered Medications: 20:22 Drug: EPINEPHrine 0.1mg/mL 1:10,000 1 mg Route: IVP; Site: left antecubital; lp1 21:21 Follow up: Response: No change in condition lp1 20:25 Drug: EPINEPHrine 0.1mg/mL 1:10,000 1 mg Route: IVP; Site: left antecubital; lp1 21:21 Follow up: Response: No change in condition lp1 20:28 Drug: EPINEPHrine 0.1mg/mL 1:10,000 1 mg Route: IVP; Site: left antecubital; lp1 21:21 Follow up: Response: No change in condition lp1 20:30 Drug: Atropine 1 mg Route: IVP; Site: left antecubital; lp1 21:22 Follow up: Response: No change in condition lp1 20:31 Drug: Sodium Bicarbonate 1 amp Route: IVP; Site: left antecubital; lp1 21:21 Follow up: Response: No change in condition lp1 20:31 Drug: EPINEPHrine 0.1mg/mL 1:10,000 1 mg Route: IVP; Site: left antecubital; lp1 21:22 Follow up: Response: No change in condition lp1 20:34 Drug: EPINEPHrine 0.1mg/mL 1:10,000 1 mg Route: IVP; Site: left antecubital; lp1 21:22 Follow up: Response: No change in condition lp1 20:34 Drug: Calcium Chloride 1 grams Route: IVP; Site: left antecubital; lp1 21:22 Follow up: Response: No change in condition lp1 20:35 Drug: Sodium Bicarbonate 1 amp Route: IVP; Site: left antecubital; lp1 21:22 Follow up: Response: No change in condition lp1 20:37 Drug: EPINEPHrine 0.1mg/mL 1:10,000 1 mg Route: IVP; Site: left antecubital; lp1 21:23 Follow up: Response: No change in condition lp1 20:39 Drug: EPINEPHrine 0.1mg/mL 1:10,000 1 mg Route: IVP; Site: left antecubital; lp1 21:23 Follow up: Response: No change in condition lp1 20:42 Drug: EPINEPHrine 0.1mg/mL 1:10,000 1 mg Route: IVP; Site: left antecubital; lp1 21:23 Follow up: Response: No change in condition lp1 Point of Care Testing: Blood Glucose: 20:37 Blood Glucose: 442 mg/dL; lp1 Ranges: Outcome: 20:47 Outcome Patient lp1 20:47 Patient : Time of 20:47 Pronounced by Michael Mayen MD lp1 20:47 Condition: 23:03 Patient : Body to home. lp1 23:04 Patient left the ED. lp1 Signatures: Eran Botello rg2 Ashley Mandujano RN RN aa1 Althea Shepard RN RN lp1 Michael Mayen MD MD Corrections: (The following items were deleted from the chart) 21:07 21:02 Presenting complaint: EMS states: toned out for difficulty lp1 lp1
[2017-11-30 23:35] VITALS: O2SAT 94
== END 2017-11-30 23:04 ==
LOC: ER 20:26
DX: I46.9 Cardiac arrest, cause unspecified (principal); I50.9 Heart failure, unspecified; J44.9 Chronic obstructive pulmonary disease, unspecified; I27.20 Pulmonary hypertension, unspecified; E11.9 Type 2 diabetes mellitus without complications; E78.5 Hyperlipidemia, unspecified; Z79.4 Long term (current) use of insulin; Z88.0 Allergy status to penicillin; Z88.5 Allergy status to narcotic agent; Z88.6 Allergy status to analgesic agent
CPT/HCPCS: 31500; 92950; 96374; 96375; 99285; J0171 ×3